=== PATIENT | male | born 1950 | race Caucasian/White ===

== ENCOUNTER 2016-09-16 12:54 | Outpatient (CLI) | payer MEDICARE, BC ==
[~2016-09-16] VITALS: Ht 182.9 cm; Wt 132.0 kg
[~2016-09-16 12:54] MED LIST: AMLO10TA82 PO; ASP81TEC PO; BNZ40T PO; CLPD75T PO; EZET10TA5 PO; MULT-851 PO; MULT-927 PO; NIAC1CAP PO; OMG1KC PO; PNT40TEC PO; VITAMIN C 1000MG PO
[2016-09-16] MEDS ORDERED: NIAC500T9 PO (13:15)
[2016-09-16 13:16] VITALS: BP 144/86
== END 2016-09-16 14:24 | disposition home or self-care (01) ==
LOC: PREOP 12:54
PROVIDERS: ATTEND Podiatrist Foot Surgery
DX: Z01.818 Encounter for other preprocedural examination (principal); Z11.2 Encounter for screening for other bacterial diseases; M66.879 Spontaneous rupture of other tendons, unspecified ankle and foot
CPT/HCPCS: 87081

== ENCOUNTER 2016-09-19 07:42 | Day surgery (SDC) | payer MEDICARE, BC ==
--- NOTE | 2016-09-17 09:31 | HISTORY AND PHYSICAL ---
DATE OF ADMISSION: 09/19/2015 To have outpatient surgery by Dr. Devine. CHIEF COMPLAINT: Left foot surgery, pain on the second toe of the left foot. Metatarsal area hurts me and wants corrected. ALLERGIC TO MEDICATIONS: Denies. MEDICATIONS NOW ON: 1. Zetia 10 mg 2. Norvasc 10 mg 3. Benazepril 40 mg 4. Plavix 75 mg 5. Pantoprazole 40 mg 6. enteric coated aspirin 81 mg 7. vitamins with minerals 8. [place]-3 fish oil 9. vitamin C 1000 mg daily 10. niacin 500 mg FAMILY HISTORY: Heart disease with sister and brothers. Denies asthma, TB, diabetes, lung disease, cancer. REVIEW OF SYSTEMS: HEAD: Denies headache, dizziness, fainting. EYES, EARS, NOSE, THROAT: Denies diplopia. Tinnitus, admits to affecting his ears and hearing. Denies sore throat. RESPIRATORY: Has sleep apnea, has a CPAP. Denies asthma, TB, coughing, congestion, wheezing. No smoking now. HEART: Heart stent 10/2011 Dr. Nuñez at the hospital. Denies heart problems, chest pain. 1-1/2 months ago, had a stress test by Dr. Nuñez, which was negative. GASTROINTESTINAL: Appetite good. Denies blood in stools, diarrhea, constipation, ulcer, vomiting. GENITOURINARY: Denies blood, pain, frequency. PHYSICAL EXAMINATION: The patient is a white male, well-nourished, well-developed, in no acute respiratory distress at rest. VITAL SIGNS: Pulse 76, blood pressure 130/90, weight 287. EARS: Not inflamed. EYES: No conjunctivitis or icterus. Wears glasses. THROAT: Not inflamed. NECK: Thyroid not enlarged. No abnormal cervical lymphadenopathy noted. HEART: Regular rate and rhythm. LUNGS: Clear to auscultation. ABDOMEN: Soft. Liver and spleen nonpalpable. Good bowel sounds. EXTREMITIES: No pretibial edema. Good dorsalis pedis pulses. PLAN: The patient okay to have surgery. We will be on standby if has any problems. Job ID: [id number] Dictated Date: 09/16/2016 15:11:47 [employer] Supervisor Date: 09/17/2016 09:26:10/vadim
[~2016-09-19] VITALS: Ht 182.9 cm; Wt 132.0 kg
[~2016-09-19 07:42] MED LIST changes: +NIAC500T9 PO
[2016-09-19] MEDS ORDERED: NORMAL SALINE (BAXTER MINI) 50 ML IV ONE (07:59)
[2016-09-19] MEDS ORDERED: ceFAZolin 1,000 MG (ANCEF) VIAL ONE (07:59)
[2016-09-19] MEDS ORDERED: MEPIVACAINE (CARBOCAINE) 2% 50 ML VIAL ONE (08:08)
[2016-09-19] MEDS ORDERED: LIDOCAINE 1% INJ 20 ML (XYLOCAINE) VIAL ONE (08:08)
[2016-09-19] MEDS ORDERED: LACTATED RINGERS 1,000 ML IV PRN (08:14)
[2016-09-19] MEDS ORDERED: CATHETER FLUSH 10 ML SYR IV PRN (08:15)
[2016-09-19] MEDS ORDERED: ceFAZolin 1 GM/NS 50 ML IVPB IV ONE ×2 (08:15)
[2016-09-19] MEDS ORDERED: FAMOTIDINE 20MG/2ML IV (PEPCID) IV ONE (08:15)
[2016-09-19 08:18] VITALS: BP 153/101
[2016-09-19] MEDS ORDERED: MIDAZOLAM 2 MG/2 ML (VERSED) VIAL ONE (09:12)
[2016-09-19] MEDS ORDERED: fentaNYL INJECTION 100 MCG/2 ML AMP ONE ×2 (09:12→09:49)
[2016-09-19] MEDS ORDERED: LACTATED RINGERS 1,000 ML IV ONE (09:17)
[2016-09-19] MEDS ORDERED: ONDANSETRON 4 MG/2 ML (SDV) Z0FRAN ONE ×2 (09:17→11:09)
[2016-09-19] MEDS ORDERED: LIDOCAINE PF 2% 10 ML (XYLOCAINE) AMP ONE (09:17)
[2016-09-19] MEDS ORDERED: DEXAMETHASONE PF 10 MG/ML (DECADRON) VIAL ONE ×2 (09:17→10:14)
[2016-09-19] MEDS ORDERED: proPOfol 200 MG/20 ML (DIPRIVAN) VIAL IV ONE (09:17)
[2016-09-19] MEDS ORDERED: SEVOFLURANE (ULTANE) 15 ML INHAL SOLN ONE (10:01)
--- NOTE | 2016-09-19 10:42 | Progress Note-Pre Operative ---
Pre-Operative Progress Note H&P Reviewed The H&P was reviewed, patient examined and no changes noted. Date H&P Reviewed: Sep 19, 2016 Time H&P Reviewed: 07:30 Pre-Operative Diagnosis: ruptured plantar plate 2nd mpj lfet foot. SYED YAP DPM Sep 19, 2016 10:42 am
[2016-09-19] MEDS ORDERED: PROMETHAZINE INJ 25 MG/ML (PHENERGAN) AMP IV PRN (10:45)
[2016-09-19] MEDS ORDERED: morphine INJ 10 MG/ML 1ML (SYR OR VIAL) IV PRN (10:45)
[2016-09-19] MEDS ORDERED: ONDANSETRON 4 MG/2 ML (SDV) Z0FRAN IV PRN (10:45)
[2016-09-19] MEDS ORDERED: LACTATED RINGERS 1,000 ML IV SCH (10:47)
--- NOTE | 2016-09-19 10:47 | Progress Note-Post Operative ---
Post-Operative Progess Note Pre-Operative Diagnosis ruptured plantar plate 2nd mpj lfet foot. Post-Operative Diagnosis same Post-Op Procedure Note Date of Procedure: Sep 19, 2016 Name of Procedure: repair of ruptured plantar plate excision of neuroma second interspace left foot. Procedure Note/Findings thickened nerve second interspace left foot and rupture of plantar plate 2nd left foot. Anesthesia Type gereral with infiltration. Specimen(s) collected neuroma second interspace left foot. SYED YAP DPM Sep 19, 2016 10:46 am
[2016-09-19] MEDS ORDERED: HYDROcodone/APAP 5 MG/325 MG (LORTAB) TAB PO PRN (11:00)
[2016-09-19 11:30] VITALS: BP 131/90
[2016-09-19] MEDS ORDERED: HYDR-3730 PO (11:54)
[2016-09-19 12:00] VITALS: BP 128/84
[2016-09-19 12:30] VITALS: BP 124/81
--- NOTE | 2016-09-19 13:27 | OPERATIVE REPORT ---
PROCEDURE PHYSICIAN: SYED YAP DATE OF PROCEDURE: 09/19/2016 PREOPERATIVE DIAGNOSIS: 1. Ruptured flexor plate, second MPJ, left foot. 2. Possible neuroma second interspace, left foot. POSTOPERATIVE DIAGNOSIS: 1. Ruptured flexor plate, second MPJ, left foot. 2. Possible neuroma second interspace, left foot. NAME OF OPERATION: 1. Repair of ruptured plantar plate second MPJ, left foot . 2. Excision of neuroma second interspace, left foot. DESCRIPTION OF OPERATION: With the patient the supine position, having been effected by general anesthetic, sterile prep and drape were performed. Timo bandage was applied above the level of the ankle. A 4 cm linear incision was made in the plantar aspect of the second MPJ. This incision was deepened with sharp and blunt dissection. Vital structures identified and retracted. Dissection was carried deep to the second interspace and the interdigital nerve was identified freed from surrounding tissues, noted to be somewhat thickened at the second interspace and resected in toto to normal nervous tissue proximally and distally. The soft tissue was then dissected free of the plantar plate and there was noted a tear with hemorrhage in the plantar aspect of the plantar plate of the second MPJ. This was reapproximated with a 3-0 Vicryl and closed primarily with continuous lock suture of 3-0 Vicryl. Deep closure was accomplished by continuous suture of 3-0 Vicryl and the skin was reapproximated with continuous lock suture of 4-0 Prolene. Tourniquet was released. Blood flow return to the digits was within normal limits. Decadron was introduced into the operative site to control postoperative pain and swelling and the area was also infiltrated with a total of 10 mL of 50-50 mixture of 0.5% Marcaine plain and 1% Carbocaine plain. The patient tolerated the procedure well with minimal blood loss following application of sterile corrective compressive dressing. He is to be seen in the office in 2 weeks for appropriate follow-up care. Was given an Rx for Lortab 7.5 number 28 one q.4-6 hours p.r.n. foot pain. Job ID: [id number] Dictated Date: 09/19/2016 11:14:44 [employer] Driving [employer] Operator Date: 09/19/2016 13:19:10 / salima
[2016-09-19 13:55] VITALS: BP 124/81
== END 2016-09-19 13:55 | disposition home or self-care (01) ==
LOC: SDC 07:42
PROVIDERS: ATTEND Podiatrist Foot Surgery
DX: M66.879 Spontaneous rupture of other tendons, unspecified ankle and foot (principal); G57.62 Lesion of plantar nerve, left lower limb

== ENCOUNTER 2017-12-29 05:39 | Outpatient (CLI) | payer MEDICARE, BC ==
[~2017-12-29] VITALS: Ht 182.9 cm; Wt 117.6 kg
[~2017-12-29 05:39] MED LIST changes: +HYDR-3730 PO
[2017-12-29] MEDS ORDERED: OMG1KC PO (11:45)
[2017-12-29] MEDS ORDERED: BNZ40T PO (11:45)
[2017-12-29] MEDS ORDERED: AMLO10TA2 PO (11:45)
[2017-12-29] MEDS ORDERED: VITA400C21 PO (11:45)
[2017-12-29] MEDS ORDERED: PANT40TA3 PO (11:45)
[2017-12-29] MEDS ORDERED: PRIM50TA PO (11:45)
[2017-12-29] MEDS ORDERED: ASPI-999 PO (11:45)
[2017-12-29] MEDS ORDERED: CLOP75TA28 PO (11:45)
[2017-12-29] MEDS ORDERED: MULT1CAP14 PO (11:45)
[2017-12-29] MEDS ORDERED: ASCO-262 PO (11:45)
[2017-12-29 11:47] VITALS: BP 132/80
== END 2017-12-29 12:12 | disposition home or self-care (01) ==
LOC: PREOP 05:39
PROVIDERS: ATTEND Orthopaedic Surgery
DX: Z01.818 Encounter for other preprocedural examination (principal); M75.101 Unspecified rotator cuff tear or rupture of right shoulder, not specified as traumatic
CPT/HCPCS: 87081

== ENCOUNTER 2018-01-06 07:22 | Day surgery (SDC) | payer MEDICARE, BC ==
--- NOTE | 2017-12-28 17:27 | HISTORY AND PHYSICAL ---
DATE OF SERVICE: ADMISSION HISTORY AND PHYSICAL DATE OF ADMISSION: 01/06/2018 This will be for outpatient surgery. He is here for right shoulder arthroscopy and rotator cuff repair. HISTORY OF PRESENT ILLNESS: The patient is a 67-year-old gentleman with complaints of right shoulder pain, which has been progressive in nature. This has been ongoing for months. He has undergone treatment with injections and home exercise program without relief. An MRI revealed a full-thickness supraspinatus tear and due to weakness and functional impairment and failure to improve with conservative measures, the patient elected to proceed with surgical intervention. REVIEW OF SYSTEMS: No chest pain. No shortness of breath. No dysuria. PAST MEDICAL HISTORY: Hypertension, hyperlipidemia. PAST SURGICAL HISTORY: Left foot. FAMILY HISTORY: Noncontributory. PRIMARY CARE PROVIDER: Eddie Ramsey DO. MEDICATIONS: Amlodipine, benazepril, clopidogrel, pantoprazole, aspirin, omega 3. ALLERGIES: No known drug allergies. SOCIAL HISTORY: The patient drinks alcohol socially. Denies tobacco use. PHYSICAL EXAMINATION: GENERAL: The patient is a well-developed, well-nourished, in no acute distress. HEENT: Normocephalic, atraumatic. Pupils are equal, round, and reactive to light. Oropharynx is clear. NECK: Supple, no lymphadenopathy. LUNGS: Clear to auscultation bilaterally. HEART: Regular rate and rhythm. ABDOMEN: Soft, nontender, nondistended. EXTREMITIES: Exam of the right shoulder demonstrates positive Neer's and positive Hawkin sign. Slight weakness with abduction and external rotation with pain elicited with Lorain's maneuver. He has pain in the right shoulder with active forward elevation beyond 90 degrees. Negative Spurling's maneuver. IMPRESSION: Right shoulder rotator cuff tear. PLAN: Right shoulder arthroscopy with open rotator cuff repair. The risks, benefits, options, ramifications and recovery were discussed at length with the patient. He understands and wishes to proceed. Job ID: [id number] DocumentID: [id number] Dictated Date: 12/28/2017 16:15:19 Systems Project Manager Date: 12/28/2017 17:26:48 Dictated By: MARK HIDALGO MD
[~2018-01-06] VITALS: Ht 182.9 cm; Wt 117.6 kg
[~2018-01-06 07:22] MED LIST changes: +AMLO10TA2 PO; +ASCO-262 PO; +ASPI-999 PO; +CLOP75TA28 PO; +LACTATED RINGERS 1,000 ML IV PRN; +MULT1CAP14 PO; +PANT40TA3 PO; +PRIM50TA PO; +VITA400C21 PO
--- OUTSIDE RECORDS SUMMARY | 2018-01-06 07:26 | XMS REPORT | Continuity of Care Document ---
Author Author [facility] Organization [facility] Address Unknown Phone Unavailable Allergies Active Description Code Type Severity Reaction Onset Reported/Identified Relationship to Patient Clinical Status Yes NO KNOWN DRUG ALLERGIES UNKNOWN NO KNOWN DRUG ALLERG Yes No Known Drug Allergies [id number] Drug Allergy Unknown N/A 12/29/2017 Medications Medication Packaging Start Date Stop Date Route Dosage Sig LACTATED RINGERS 1000CC IV BAG INJ ml 07/06/2017 07/13/2017 CONTINUOUSEVERY 0 Hour Problems Date Dx Coded Attending Type Code Diagnosis Diagnosed By 08/06/2016 CACHORRO SUTTON L TOBACCO SCRAP SIFTER Ot E78.4 OTHER HYPERLIPIDEMIA 08/06/2016 HERMAN, CACHORRO L TOBACCO SCRAP SIFTER Ot G47.33 OBSTRUCTIVE SLEEP APNEA (ADULT) (PEDIATR 08/06/2016 BAIMA, CACHORRO L TOBACCO SCRAP SIFTER Ot I10 ESSENTIAL (PRIMARY) HYPERTENSION 08/06/2016 BAIMA, CACHORRO L TOBACCO SCRAP SIFTER Ot I25.10 ATHSCL HEART DISEASE OF [place] CORONARY 08/06/2016 BAIMA, CACHORRO L TOBACCO SCRAP SIFTER Ot I65.23 OCCLUSION AND STENOSIS OF BILATERAL [place] 09/02/2016 BAIMA, CACHORRO L TOBACCO SCRAP SIFTER Ot E78.4 OTHER HYPERLIPIDEMIA 09/02/2016 BAIMA, CACHORRO L TOBACCO SCRAP SIFTER Ot G47.33 OBSTRUCTIVE SLEEP APNEA (ADULT) (PEDIATR 09/02/2016 BAIMA, CACHORRO L TOBACCO SCRAP SIFTER Ot I10 ESSENTIAL (PRIMARY) HYPERTENSION 09/02/2016 BAIMA, CACHORRO L TOBACCO SCRAP SIFTER Ot I25.10 ATHSCL HEART DISEASE OF [place] CORONARY 09/02/2016 BAIMA, CACHORRO L TOBACCO SCRAP SIFTER Ot I65.23 OCCLUSION AND STENOSIS OF BILATERAL [place] 09/03/2016 BAIMA, CACHORRO L TOBACCO SCRAP SIFTER Ot E78.4 OTHER HYPERLIPIDEMIA 09/03/2016 BAIMA, CACHORRO L TOBACCO SCRAP SIFTER Ot G47.33 OBSTRUCTIVE SLEEP APNEA (ADULT) (PEDIATR 09/03/2016 BAIMA, CACHORRO L TOBACCO SCRAP SIFTER Ot I10 ESSENTIAL (PRIMARY) HYPERTENSION 09/03/2016 BAIMA, CACHORRO L TOBACCO SCRAP SIFTER Ot I25.10 ATHSCL HEART DISEASE OF [place] CORONARY 09/03/2016 CACHORRO SUTTON TOBACCO SCRAP SIFTER Ot I65.23 OCCLUSION AND STENOSIS OF BILATERAL [place] 09/17/2016 YAP DPM, SYED P Ot M66.879 SPONTANEOUS RUPTURE OF OTHER TENDONS, UN 09/17/2016 YAP DPM, SYED P Ot Z01.818 ENCOUNTER FOR OTHER PREPROCEDURAL EXAMIN 09/17/2016 YAP DPM, SYED P Ot Z11.2 ENCOUNTER FOR SCREENING FOR OTHER BACTER 09/17/2016 YAP DPM, SYED P Ot M66.879 SPONTANEOUS RUPTURE OF OTHER TENDONS, UN 09/17/2016 YAP DPM, SYED P Ot Z01.818 ENCOUNTER FOR OTHER PREPROCEDURAL EXAMIN 09/17/2016 YAP DPM, SYED P Ot Z11.2 ENCOUNTER FOR SCREENING FOR OTHER BACTER 09/19/2016 YAP DPM, SYED P Ot G57.62 LESION OF PLANTAR NERVE, LEFT LOWER LIMB 09/19/2016 YAP DPM, SYED P Ot M66.879 SPONTANEOUS RUPTURE OF OTHER TENDONS, UN 09/23/2016 YAP DPM, SYED P Ot G57.62 LESION OF PLANTAR NERVE, LEFT LOWER LIMB 09/23/2016 YAP DPM, SYED P Ot M66.879 SPONTANEOUS RUPTURE OF OTHER TENDONS, UN 09/25/2016 YAP DPM, SYED P Ot G57.62 LESION OF PLANTAR NERVE, LEFT LOWER LIMB 09/25/2016 YAP DPM, SYED P Ot M66.879 SPONTANEOUS RUPTURE OF OTHER TENDONS, UN 05/19/2017 Eddie Ramsey W 573.9 UNSPECIFIED DISORDER OF LIVER 05/19/2017 Eddie Ramsey 573.9 UNSPECIFIED DISORDER OF LIVER 07/06/2017 Cristina Chopra W 562.12 DIVERTICULOSIS OF COLON WITH HEMORRHAGE 07/06/2017 Cristina Chopra K57.30 DVRTCLOS OF LG INT W/O PERFORATION OR ABSCESS W/O BLEEDING 07/06/2017 Cristina Chopra V76.51 SCREENING FOR MALIGNANT NEOPLASMS OF COLON 07/06/2017 Critsina Chopra A Z12.11 ENCOUNTER FOR SCREENING FOR MALIGNANT NEOPLASM OF COLON 12/07/2017 Eddie Ramsey W 401.9 UNSPECIFIED ESSENTIAL HYPERTENSION 12/07/2017 Eddie Ramsey W I10 ESSENTIAL (PRIMARY) HYPERTENSION 12/29/2017 GWEN VILLANUEVA, MARK Alston Ot M75.101 UNSP ROTATR-CUFF TEAR/RUPTR OF RIGHT JOE 12/29/2017 GWEN VILLANUEVA, MARK Alston Ot Z01.818 ENCOUNTER FOR OTHER PREPROCEDURAL EXAMIN Procedures There is no data. Results Test Result Range Methicillin resistant Staphylococcus aureus (MRSA) screening culture - 13:10 Methicillin resistant Staphylococcus aureus (MRSA) screening culture NEG NRG Thyroid Stimulating Hormone - 01/13/17 16:04 TSH 0.85 mIU/mL 0.32-5.00 T4 - 01/13/17 16:04 T4 7.1 ug/dL 4.5-12.5 Lipid Panel - 02/10/17 09:47 C/HDL 4.7 3.7-6.7 Cholesterol 204 mg/dL 100-240 HDL 43 mg/dL 30-85 LDL-Calculated 139 mg/dL 0-100 Trig 112 mg/dL 35-160 VLDL 22 mg/dL 0-42 Comprehensive Metabolic Panel - 02/10/17 09:47 Albumin 4.5 g/dL 3.6-5.1 ALP 64 U/L 35-130 ALT 149 U/L 6-45 Anion Gap 14 6-14 AST 90 U/L 2-40 BUN 15 mg/dL 5-25 Calcium 9.8 mg/dL 8.3-10.4 Chloride 109 mmol/L 95-114 CO2 23 mEq/L 22-33 Creat 1.18 mg/dL 0.50-1.50 eGFR 62 mL/min/1.73m2 >59 Globulin 3.0 g/dL 2.3-3.5 Glucose 122 mg/dL 70-110 Osmo 293 280-295 Potassium 4.5 mmol/L 3.5-5.3 Sodium 141 mmol/L 134-148 TBil 0.8 mg/dL 0.2-1.2 TP 7.5 g/dL 6.0-8.3 ALT (SGPT) - 03/25/17 10:13 ALT 144 U/L 6-45 AST (SGOT) - 03/25/17 10:13 AST 96 U/L 2-40 AST (SGOT) - 04/25/17 08:41 AST 92 U/L 2-40 Blood Urea Nitrogen - 04/29/17 12:24 BUN 16 mg/dL 5-25 Creatinine - 04/29/17 12:24 Creat 1.20 mg/dL 0.50-1.50 eGFR 61 mL/min/1.73m2 >59 Hepatic Panel - 05/19/17 09:23 Albumin 4.2 g/dL 3.6-5.1 ALP 58 U/L 35-130 ALT 170 U/L 6-45 AST 113 U/L 2-40 DBil 0.3 mg/dL 0.0-0.2 GGT 45 U/L 5-40 Globulin 3.2 g/dL 2.3-3.5 TBil 0.8 mg/dL 0.2-1.2 TP 7.4 g/dL 6.0-8.3 Hepatitis Panel, Acute - 05/19/17 09:23 Hep A Ab, IgM NEGATIVE NEGATIVE HBsAg Screen NEGATIVE NEGATIVE Hep B Core Ab, IgM NEGATIVE NEGATIVE Hep C Virus Ab <0.1 S/CO RATIO 0.0-0.9 Hepatitis Panel (4) - 05/19/17 09:23 HBsAg Screen Negative Negative Hep A Ab, IgM Negative Negative Hep B Core Ab, IgM Negative Negative Hep C Virus Ab <0.1 s/co ratio 0.0-0.9 Hepatic Panel - 06/27/17 09:12 Albumin 4.2 g/dL 3.6-5.1 ALP 63 U/L 35-130 ALT 139 U/L 6-45 AST 78 U/L 2-40 DBil 0.4 mg/dL 0.0-0.2 GGT 34 U/L 5-40 Globulin 2.9 g/dL 2.3-3.5 TBil 0.9 mg/dL 0.2-1.2 TP 7.1 g/dL 6.0-8.3 Comprehensive Metabolic Panel - 07/01/17 12:21 Albumin 4.3 g/dL 3.6-5.1 ALP 67 U/L 35-130 ALT 135 U/L 6-45 Anion Gap 15 6-14 AST 80 U/L 2-40 BUN 13 mg/dL 5-25 Calcium 9.5 mg/dL 8.3-10.4 Chloride 109 mmol/L 95-114 CO2 20 mEq/L 22-33 Creat 1.18 mg/dL 0.50-1.50 eGFR 62 mL/min/1.73m2 >59 Globulin 3.1 g/dL 2.3-3.5 Glucose 109 mg/dL 70-110 Osmo 288 280-295 Potassium 4.5 mmol/L 3.5-5.3 Sodium 139 mmol/L 134-148 TBil 0.6 mg/dL 0.2-1.2 TP 7.4 g/dL 6.0-8.3 Influenza - 08/04/17 11:25 Influenza NEGATIVE FOR A and B 0.00-0.00 Hepatic Panel - 10/01/17 08:54 Albumin 4.4 g/dL 3.6-5.1 ALP 67 U/L 35-130 ALT 35 U/L 6-45 AST 26 U/L 2-40 DBil 0.2 mg/dL 0.0-0.2 GGT 23 U/L 5-40 Globulin 3.2 g/dL 2.3-3.5 TBil 0.5 mg/dL 0.2-1.2 TP 7.6 g/dL 6.0-8.3 Lipid Panel - 12/07/17 10:05 C/HDL 6.1 3.7-6.7 Cholesterol 244 mg/dL 100-240 HDL 40 mg/dL 30-85 LDL-Calculated 165 mg/dL 0-100 Trig 195 mg/dL 35-160 VLDL 39 mg/dL 0-42 Comprehensive Metabolic Panel - 12/07/17 10:05 Albumin 4.5 g/dL 3.6-5.1 ALP 61 U/L 35-130 ALT 22 U/L 6-45 Anion Gap 16 6-14 AST 21 U/L 2-40 BUN 20 mg/dL 5-25 Calcium 10.2 mg/dL 8.3-10.4 Chloride 104 mmol/L 95-114 CO2 22 mEq/L 22-33 Creat 1.29 mg/dL 0.50-1.50 eGFR 56 mL/min/1.73m2 >59 Globulin 3.4 g/dL 2.3-3.5 Glucose 118 mg/dL 70-110 Osmo 287 280-295 Potassium 4.8 mmol/L 3.5-5.3 Sodium 137 mmol/L 134-148 TBil 0.5 mg/dL 0.2-1.2 TP 7.9 g/dL 6.0-8.3 Methicillin resistant Staphylococcus aureus (MRSA) screening culture - 11:45 Methicillin resistant Staphylococcus aureus (MRSA) screening culture NEG NRG Encounters ACCT No. Visit Date/Time Discharge Status Pt. Type Provider Facility Loc./Unit Complaint [id number] 12/29/2017 05:39:00 12/29/2017 12:12:00 DIS Outpatient MARK HIDALGO MD [facility] PREOP RIGHT SHOULDER ROTATOR CUFF REPAIR [id number] 09/19/2016 07:42:00 09/19/2016 13:55:00 DIS Outpatient SYED YAP DPM [facility] RUPTURED PLANTAR PLATE 2ND MPJ LEFT FOOT [id number] 09/16/2016 12:54:00 09/16/2016 14:24:00 DIS Outpatient SYED YAP DPM [facility] PREOP RUPTURED PLANTAR PLATE 2ND MPJ LEFT [id number] 08/05/2016 07:59:00 08/05/2016 23:59:59 CLS Outpatient CACHORRO SUTTON [facility] CARD CAD,SLEEP APNEA [id number] 12/06/2013 11:16:00 12/06/2013 23:59:59 CLS Outpatient [id number] 11/29/2013 11:00:00 11/29/2013 17:50:00 DIS Outpatient [id number] 01/06/2018 08:00:00 PEN Preadmit MARK HIDALGO MD [facility] RIGHT SHOULDER ROTATOR CUFF TEAR [id number] 12/07/2017 09:50:00 12/07/2017 23:59:00 DIS Outpatient Eddie Ramsey [id number] 11/08/2017 00:00:00 11/08/2017 23:59:00 DIS Outpatient MARK HIDALGO [id number] 11/04/2017 00:00:00 11/04/2017 23:59:00 DIS Outpatient MARK HIDALGO [id number] 10/01/2017 08:51:00 10/01/2017 23:59:00 DIS Outpatient Jluis Thomas [id number] 08/04/2017 10:17:00 08/04/2017 23:59:00 DIS Outpatient Eddie Ramsey [id number] 07/06/2017 00:00:00 07/06/2017 23:59:59 CLS Outpatient Cristina Chopra [id number] 07/01/2017 12:01:00 07/01/2017 23:59:00 DIS Outpatient Jose Choprarimma [id number] 06/27/2017 09:05:00 06/27/2017 23:59:00 DIS Outpatient Jluis Thomas [id number] 05/19/2017 09:16:00 05/19/2017 23:59:00 DIS Outpatient Eddie Ramsey [id number] 04/30/2017 09:37:00 04/30/2017 23:59:00 DIS Outpatient Eddie Ramsey [id number] 04/29/2017 12:17:00 04/29/2017 23:59:00 DIS Outpatient Eddie Ramsey [id number] 04/25/2017 08:30:00 04/25/2017 23:59:00 DIS Outpatient Eddie Ramsey [id number] 03/25/2017 10:09:00 03/25/2017 23:59:00 DIS Outpatient Eddie Ramsey [id number] 02/10/2017 09:44:00 02/10/2017 23:59:00 DIS Outpatient Eddie Ramsey [id number] 01/13/2017 16:00:00 01/13/2017 23:59:00 DIS Outpatient THEE DHILLON [id number] 07/01/2017 12:45:11 Document Registration [id number] 05/20/2017 12:18:00 Document Registration
[2018-01-06 07:30] VITALS: BP 133/69
[2018-01-06] MEDS ORDERED: ceFAZolin INJECTION 1,000 MG in NS (IVPB) 100 ML IV ONE (07:30)
--- NOTE | 2018-01-06 07:36 | Progress Note-Pre Operative ---
Pre-Operative Progress Note H&P Reviewed The H&P was reviewed, patient examined and no changes noted. Date Seen by Provider: January 06, 2018 Time Seen by Provider: 07:36 Date H&P Reviewed: January 06, 2018 Time H&P Reviewed: 07:36 Pre-Operative Diagnosis: right rotator cuff tear MARK HIDALGO MD January 06, 2018 07:36
--- NOTE | 2018-01-06 07:37 | Progress Note-Post Operative ---
Post-Operative Progess Note Surgeon (s)/Egg Worker (s) Surgeon MARK HIDALGO MD Egg Worker: Ramon Peterson Pre-Operative Diagnosis right rotator cuff tear Post-Operative Diagnosis right rotator cuff tear Procedure & Operative Findings Date of Procedure 01/06/18 Procedure Performed/Findings right shoulder arthroscopic acromioplasty and open rotator cuff repair Anesthesia Type GETA plus interscalene block Estimated Blood Loss Estimated blood loss (mL): 50 ml Specimens/Packing Specimens Removed none Packing: none MARK HIDALGO MD January 06, 2018 07:37
[2018-01-06] MEDS ORDERED: oxyCODONE/APAP 5/325MG (PERCOCET 5) TABLET PO PRN (07:45)
[2018-01-06] MEDS ORDERED: FAMOTIDINE 20MG/2ML IV (PEPCID) ONE (08:47)
[2018-01-06] MEDS ORDERED: ONDANSETRON 4 MG/2 ML (SDV) Z0FRAN ONE ×2 (08:47→10:10)
[2018-01-06] MEDS ORDERED: ROPIVACAINE 5MG/ML 30ML VIAL ONE (08:50)
[2018-01-06] MEDS ORDERED: MIDAZOLAM 2 MG/2 ML (VERSED) VIAL ONE (08:50)
[2018-01-06] MEDS ORDERED: fentaNYL INJECTION 100 MCG/2 ML AMP ONE (08:57)
[2018-01-06] MEDS ORDERED: BUPIVACAINE 0.25% 30 ML (SENSORCAINE) VIAL ONE (09:19)
[2018-01-06] MEDS ORDERED: morphine PF (DURAMORPH) 10 MG/10 ML AMP ONE (09:19)
[2018-01-06] MEDS ORDERED: LIDOCAINE PF 2% 5 ML (XYLOCAINE) VIAL ONE (09:21)
[2018-01-06] MEDS ORDERED: proPOfol 200 MG/20 ML (DIPRIVAN) VIAL IV ONE (09:21)
[2018-01-06] MEDS ORDERED: PROPOFOL INJECTION 50 ML IV ONE ×2 (10:10)
[2018-01-06] MEDS ORDERED: DEXAMETHASONE 10 MG/ML (DECADRON) 1 ML VIAL ONE (10:10)
[2018-01-06] MEDS ORDERED: ROCURONIUM 10 MG/ML 5 ML SYRINGE IV ONE (10:27)
[2018-01-06] MEDS ORDERED: GLYCOPYRROLATE 0.2 MG/ML (ROBINUL) 2 ML VIAL ONE (10:35)
[2018-01-06] MEDS ORDERED: NEOSTIGMINE 1 MG/ML 5 ML SYRINGE ONE (10:35)
--- NOTE | 2018-01-06 10:36 | Anesthesia-Peripheral Nerve Bl ---
Procedure Start/Stop Time Date of Procedure: January 06, 2018 Start Time: 09:10 Referring Physician: Alfa Preprocedural Diagnosis: Shoulder Surgery Stop Time: 09:20 Peripheral Nerve Block Peripheral Nerve Blockade Risk/Benefits/Alternatives discussed, including IV injection leading to complications or seizures, nerve irritation or damage, pneumothorax, total spinal anesthesia, injection, and/or bleeding. Approach: Interscalene Side Confirmed: RIGHT Indication: Req Pain Mgmt by Surgeon Specifically requested for management of pain by: Alfa Physician requested: yes Patient Condition Vital Signs Vital Signs Date Time Temp Pulse Resp B/P (MAP) Pulse Ox O2 Delivery O2 Flow Rate FiO2 01/06/18 07:30 98.1 69 16 133/69 (90) 95 Room Air Patient Condition: Sedate/contact maintained Indication Post Op pain control Procedure Prepartation: Alcohol, Chlorhexidine Position: Supine [place]: Short-bevel Needle (s) Size: 22g 2" [place] Barrel Ribs: Stimiplex Technique: Injection through needle, Infiltration, Nerve Stimulation, Ultrasound Motor response or parethesia o: Bicep mA: 0.44 Depth (cm): 1.5 Sedation Given: Midazolam (2 mg) Dose (mg/mcg): 2 Injectate: ropivacaine Concentration %: 0.5 Volume (ml): 20 Narrative Injection was made incrementally with constant monitoring. Aspiration every (mls): 5 Blood Aspirated: No Pain on injection noted: No Normal Resistance on injection: Yes Events Events: None:easy well tolerated Sucess: Complete Patient Conditon Post Peripheral Nerve Block Post Peripheral Nerve Block Vital Signs: Blood Pressure: Systolic Diastolic Heart Rate Blood Pressure Systolic: 133 Blood Pressure Diastolic: 69 Pulse Rate (adult): 69 CHICA JACKSON CRNA January 06, 2018 10:36
[2018-01-06] MEDS ORDERED: ONDANSETRON 4 MG/2 ML (SDV) Z0FRAN IVP PRN (11:00)
[2018-01-06] MEDS ORDERED: PROMETHAZINE INJ 25 MG/ML (PHENERGAN) AMP IVP PRN (11:00)
[2018-01-06] MEDS ORDERED: morphine INJ 10 MG/ML 1ML (SYR OR VIAL) IVP PRN (11:00)
[2018-01-06] MEDS ORDERED: fentaNYL INJECTION 100 MCG/2 ML AMP IVP PRN (11:00)
[2018-01-06 11:45] VITALS: BP 115/76
[2018-01-06 11:46] VITALS: BP 115/76
[2018-01-06 12:15] VITALS: BP 130/81
[2018-01-06] MEDS ORDERED: OXYC-471 PO (12:31)
[2018-01-06 12:45] VITALS: BP 127/84
--- NOTE | 2018-01-06 12:45 | Anesthesia-General Post-Op ---
General Patient Condition Mental Status/LOC: Same as Preop Cardiovascular: Satisfactory Nausea/Vomiting: Absent Respiratory: Satisfactory Pain: Controlled Complications: Absent Post Op Complications Complications None Follow Up Care/Instructions Patient Instructions None needed. Anesthesia/Patient Condition Patient Condition Patient is doing well, no complaints, stable vital signs, no apparent adverse anesthesia problems. No complications reported per nursing. CHICA JACKSON CRNA January 06, 2018 12:45
--- NOTE | 2018-01-06 20:30 | OPERATIVE REPORT ---
DATE OF SERVICE: 01/06/2018 PREOPERATIVE DIAGNOSIS: Right rotator cuff tear. POSTOPERATIVE DIAGNOSIS: Right rotator cuff tear. PROCEDURE: 1. Right shoulder arthroscopic acromioplasty. 2. Right shoulder open rotator cuff repair. SURGEON: Ronald Hidalgo MD [employer] INSTRUCTOR: Ramon Peterson, who assisted throughout the procedure and closed the incisions. ANESTHESIA: General endotracheal plus interscalene nerve block by Paradise Lang CRNA ESTIMATED BLOOD LOSS: 50 mL. DRAINS: None. COMPLICATIONS: None. POSTOPERATIVE PLAN: Sling wear and passive range of motion for 4 weeks. The patient was transported to the recovery room awake and in stable condition. STATEMENT OF MEDICAL NECESSITY: The patient is a 67-year-old right hand dominant gentleman with complaints of right shoulder pain and weakness. He had undergone treatment with injections, anti-inflammatories and rest without relief and due to functional impairment and failure to improve with conservative measures, the patient elected to proceed with surgical intervention. An MRI confirmed a full thickness supraspinatus tear. Examination under anesthesia revealed passive range of motion degrees, external rotation of 90 degrees and internal rotation of 75 degrees. Arthroscopic findings demonstrated a 2 x 1 cm full thickness supraspinatus tear. The rotator cuff otherwise was intact. The humeral head demonstrated grade 2 chondral wear superiorly and a 10 x 10 area with no unstable chondral flaps. The glenoid demonstrated no significant chondral abnormalities. The labrum was intact throughout. The biceps anchor was intact. DESCRIPTION OF PROCEDURE: After risks and benefits of the procedure were discussed and questions were answered, an informed consent was signed and placed on chart. The operative site was confirmed in the preoperative holding area initialed by the surgeon. The patient transported to the operating room after adequate levels of regional and general endotracheal anesthetic were obtained. A timeout was called confirming the operative site. Examination under anesthesia was performed. The above findings noted. The right shoulder and upper extremity were prepped and draped in the usual sterile fashion. The shoulder joint was injected with 20 mL of fluid as was the subacromial space. Standard posterior portal was placed and diagnostic arthroscopy was carried out with the above findings noted. The scope was then redirected into the subacromial space and a lateral portal was created. A bursectomy was performed and the acromion was planed to a flat type 1 acromion. The lateral portal was then extended. The deltoid was split in line with its fibers. The rotator cuff tear was mobilized and a single corkscrew anchor was placed just off the articular surface in a modified Cosmo -- Poncho repair was performed. An anatomic repair was obtained with no undue tension noted at the repair site. The wound was copiously irrigated. The deltoid was repaired in side to side fashion using #2 FiberWire in [id number] interrupted fashion. The wound was further irrigated. A 2-0 Vicryl was used to reapproximate the subcutaneous tissue and the skin was closed with 4-0 nylon in running alternating horizontal mattress fashion. The port sites were closed with 4-0 nylon in simple interrupted fashion as well. A soft dressing and sling were applied. The patient was transported to the recovery room awake and in stable condition. Job ID: [id number] DocumentID: [id number] Dictated Date: 01/06/2018 10:38:36 Fans Clerk Date: 01/06/2018 20:30:27 Dictated By: RONALD HIDALGO MD
== END 2018-01-06 13:10 | disposition home or self-care (01) ==
LOC: SDC 07:22
PROVIDERS: ATTEND Orthopaedic Surgery
DX: M75.101 Unspecified rotator cuff tear or rupture of right shoulder, not specified as traumatic (principal); I10 Essential (primary) hypertension; E78.5 Hyperlipidemia, unspecified; Z79.82 Long term (current) use of aspirin; Z79.899 Other long term (current) drug therapy

== ENCOUNTER → 2018-10-15 | Outpatient (CLI) | payer MEDICARE, BC ==
[~2018-10-15] VITALS: Ht 182.9 cm; Wt 113.4 kg
[~2018-10-15] MED LIST changes: -AMLO10TA2 PO; +AMLO10TA7 PO; +BENA40TA5 PO; -LACTATED RINGERS 1,000 ML IV PRN; +OXYC-471 PO
--- NOTE | 2018-10-15 11:44 | Diagnostic Imaging Report ---
INDICATION: Left thyroid nodule. FINDINGS: Sonographic guidance was provided for Dr. Regalado for left thyroid nodule FNA. A total of three passes were made by Dr. Regalado. IMPRESSION: Sonographic guidance for Dr. Regalado for left thyroid nodule FNA. Dictated by: Dictated on workstation # [id number]
== END ==
LOC: RAD 10:21
PROVIDERS: ATTEND Otolaryngology Otolaryngology/Facial Plastic Surgery
DX: E04.1 Nontoxic single thyroid nodule (principal)
CPT/HCPCS: 76942

== ENCOUNTER → 2019-01-13 | Outpatient (CLI) | payer MEDICARE, BC ==
--- NOTE | 2019-01-13 17:42 | Diagnostic Imaging Report ---
INDICATION: Left thyroid nodule. FINDINGS: Sonographic guidance was provided for Dr. Regalado for left thyroid nodule FNA. Three passes were made into the left lobe thyroid hypoechoic nodule by Dr. Regalado. IMPRESSION: Sonographic guidance for left thyroid FNA by Dr. Regalado. Dictated by: Dictated on workstation # [id number]
== END ==
LOC: RAD 10:38
PROVIDERS: ATTEND Otolaryngology Otolaryngology/Facial Plastic Surgery
DX: E04.1 Nontoxic single thyroid nodule (principal)
CPT/HCPCS: 76942

== ENCOUNTER → 2019-02-22 | Outpatient (CLI) | payer MEDICARE, BC ==
[~2019-02-22] VITALS: Ht 182.9 cm; Wt 117.5 kg
[~2019-02-22] MED LIST changes: +REGADENOSON 0.4 MG/5 ML SYR (LEXISCAN) IV ONE
[2019-02-22] MEDS: CATHETER FLUSH 10 ML SYR IV PRN ×2 (11:34→12:56)
[2019-02-22 12:54] VITALS: BP 150/94
== END ==
LOC: CARD 10:40
PROVIDERS: ATTEND Internal Medicine Cardiovascular Disease
DX: I25.10 Atherosclerotic heart disease of native coronary artery without angina pectoris (principal); I77.9 Disorder of arteries and arterioles, unspecified; I10 Essential (primary) hypertension; E78.5 Hyperlipidemia, unspecified; R73.01 Impaired fasting glucose; G47.30 Sleep apnea, unspecified
CPT/HCPCS: 78452; 93017; 93306

== ENCOUNTER → 2019-07-01 | Outpatient (CLI) | payer MEDICARE, BC ==
[~2019-07-01] MED LIST changes: -REGADENOSON 0.4 MG/5 ML SYR (LEXISCAN) IV ONE
--- NOTE | 2019-07-01 08:47 | Diagnostic Imaging Report ---
PROCEDURE: US Thyroid. TECHNIQUE: Multiple real-time grayscale images were obtained of the thyroid in various projections. INDICATION: Left thyroid nodule. COMPARISON: 01/13/2019 FINDINGS: The right thyroid lobe measures 5.1 x 2.1 x 1.6 cm in size. There is a hypoechoic mildly irregular nodule in the superior right thyroid with a small peripheral calcification. There is posterior acoustic enhancement, and this may represent a cyst. No internal vascularity is seen. It is wider than tall, measuring 8 x 5 x 7 mm in size. This is not seen previously. The isthmus is normal in size measuring 4 mm. The left thyroid lobe measures 4.7 x 2.2 x 1.7 cm. There is a heterogeneous circumscribed nodule which appears to have posterior acoustic enhancement, and measures 1.9 x 1.4 x 1.3 cm. There appear to be a few small internal cystic components. This nodule was previously biopsied. This measures approximately 1.2 x 1.3 cm on transverse imaging on 01/13/2019. IMPRESSION: 1. Previously biopsied nodule in the left thyroid appears overall stable in size compared to 01/13/2019. 2. Subcentimeter nodule in the right thyroid lobe, may be a cyst. This does not yet qualify for tissue sampling. Dictated by: Dictated on workstation # [id number]
== END ==
LOC: RAD 07:29
PROVIDERS: ATTEND Otolaryngology Otolaryngology/Facial Plastic Surgery
DX: E04.2 Nontoxic multinodular goiter (principal)
CPT/HCPCS: 76536

== ENCOUNTER 2019-11-25 12:43 | Inpatient (IN) | payer MEDICARE, BC ==
[~2019-11-25] VITALS: Ht 182.9 cm; Wt 113.6 kg
[2019-11-25 12:45] VITALS: BP 147/87
[2019-11-25 14:39] VITALS: BP 147/87
[2019-11-25] MEDS ORDERED: ACETAMINOPHEN 325 MG TABLET PO PRN (15:15)
[2019-11-25] MEDS ORDERED: polyethylene glycoL POWDER 17 GM (MIRALAX) PACK PO PRN (15:15)
[2019-11-25] MEDS ORDERED: ANTACID SUSP 30 ML UDC (MYLANTA) PO PRN (15:15)
[2019-11-25] MEDS ORDERED: ONDANSETRON 4 MG/2 ML (SDV) Z0FRAN IV PRN (15:15)
[2019-11-25] MEDS ORDERED: ENOXAPARIN 40 MG/0.4 ML (LOVENOX) SYR SC SCH (15:15)
[2019-11-25] MEDS ORDERED: MELATONIN 3 MG TABLET PO PRN (15:15)
[2019-11-25] MEDS ORDERED: CATHETER FLUSH 10 ML SYR IV PRN (15:15)
--- NOTE | 2019-11-25 15:18 | History & Physical-Hospitalist ---
History of Present Illness HPI/Chief Complaint Patient is a 69-year-old male with past medical history of coronary artery disease, hypertension, hyperlipidemia who presented to outside emergency room due to chest pain. He states that he is normally able to walk at least 1 mile every morning but over the past 6 weeks he has had dyspnea on exertion. This morning he was not able to walk most of his walk due to dyspnea. This is accompanied by chest heaviness and jaw pain. It resolved with rest. He called his PCP who recommended evaluation in the emergency room. EKG was done and did not show a STEMI but troponin was elevated at 0.56 and serial troponin was 0.65. He was transferred here for cardiology evaluation. He states that he had a cardiac catheter 10 years ago with a stent placed. And his last stress test was roughly 9 months ago and was normal. He follows with Dr. Blas. He takes aspirin and Plavix regularly. Source: patient Date Seen 11/25/19 Time Seen by a Provider: 15:15 Attending Physician Aubrey Mercado MD PCP Eddie Ramsey DO Referring Physician Date of Admission Nov 25, 2019 at 13:50 Home Medications & Allergies Home Medications Reviewed patient Home Medication Reconciliation performed by pharmacy medication reconciliations pv design and installation technician and/or nursing. Patients Allergies have been reviewed. Allergies Allergies Coded Allergies No Known Drug Allergies (Unverified12/29/17) Past Hmokhbl-Gfsmyc-Okqrje Hx Past Med/Social Hx: Reviewed Nursing Past Med/Soc Hx Patient Social History Marrital Status: Employed/Student: retired Alcohol Use: Rarely Uses Number of Drinks Today: 0 Recreational Drug Use: No Smoking Status: Former Smoker Former Smoker, Quit: Sep 16, 1992 Physical Abuse Screen: No Sexual Abuse: No Recent Foreign Travel: No Contact w/other who traveled: No Recent Hopitalizations: No Recent Infectious Disease Expo: No Immunizations Up To Date Tetanus Booster (TDap): Unknown Pediatric: No Date of Pneumonia Vaccine: Jul 07, 2016 Date of Influenza Vaccine: Jun 15, 2017 Seasonal Allergies Seasonal Allergies: No Past Medical History Surgeries: Orthopedic Currently Using CPAP: Yes Cardiac: Coronary Artery Disease, High Cholesterol, Hypertension Reproductive: No Sexually Transmitted Disease: No HIV/AIDS: No Gastrointestinal: Gastroesophageal Reflux, Ulcer HEENT: Tinnitis Loss of Vision: Bilateral Hearing Impairment: Hard of Hearing History of Blood Disorders: No Adverse Reaction to Blood Moura: No (N/A) Family History Reviewed Nursing Family Hx Review of Systems Constitutional: No chills, No diaphoresis, No fever, No weakness EENTM: other (jaw pain) Respiratory: dyspnea on exertion; No orthopnea; short of breath Cardiovascular: chest pain Gastrointestinal: No abdominal pain, No constipation, No diarrhea, No nausea, No vomiting Genitourinary: no symptoms reported Musculoskeletal: no symptoms reported Skin: no symptoms reported Psychiatric/Neurological: No Symptoms Reported Physical Exam Physical Exam Vital Signs Vital Signs - First Documented 11/25/19 11/25/19 12:45 16:39 Temp 36.1 Pulse 65 Resp 20 B/P (MAP) 147/87 (107) Pulse Ox 97 O2 Delivery Room Air FiO2 21 Capillary Refill : Height, Weight, BMI Height: 6'0.00" Weight: 259lbs. 0.0oz. [id number]; 33.95 BMI Method: General Appearance: No Apparent Distress, WD/WN, Obese HEENT: PERRL/EOMI, Moist Mucous Membranes; No Scleral Icterus (L), No Scleral Icterus (R) Neck: Supple; No Thyromegaly Respiratory: Chest Non Tender, Lungs Clear, No Accessory Muscle Use, No Respiratory Distress Cardiovascular: Regular Rate, Rhythm, No JVD, No Murmur Gastrointestinal: Non Tender, Soft Extremity: Non Tender, No Calf Tenderness, No Pedal Edema Neurologic/Psychiatric: Alert, Oriented x3, Normal Mood/Affect Skin: Normal Color, Warm/Dry Results Results/Procedures Labs Patient resulted labs reviewed. Assessment/Plan Admission Diagnosis Chest Pain Admission Status: Observation Assessment and Plan Chest Pain CAD NSTEMI Symptoms concerning for typical chest pain Elevated troponin at outside hospital Repeat here Cardiology consulted Telemetry echo HTN HLD Continue home meds MAGDALENA Pt to bring home CPAP Diagnosis/Problems Diagnosis/Problems (1) Chest pain Status: Acute Qualifiers: Chest pain type: unspecified Qualified Codes: R07.9 - Chest pain, unspecified (2) HLD (hyperlipidemia) Qualifiers: Hyperlipidemia type: mixed hyperlipidemia Qualified Codes: E78.2 - Mixed h yperlipidemia (3) Hypertension Qualifiers: Hypertension type: essential hypertension Qualified Codes: I10 - Essential (primary) hypertension Clinical Quality Measures DVT/VTE Risk/Contraindication: Risk Factor Score Per Nursin RFS Level Per Nursing on Admit: 2=Moderate AUBREY MERCADO MD 27, 2020 15:18
--- NOTE | 2019-11-25 15:52 | NUR ---
UNABLE TO COMPLETE MED REC AT THIS TIME. SOMEONE FROM THE [facility] WAS IN WITH THE PT AND RT WAS WAITING TO GO IN I WILL COMPLETE THE MED REC AT A LATER DATE
[2019-11-25 16:00] VITALS: BP 136/83
[2019-11-25 16:39] VITALS: BP 147/87
--- NOTE | 2019-11-25 16:46 | NUR ---
0.299 TROPONIN REPORTED TO Danilo. REPEAT TROPONIN ORDERED IN 4 HRS
[2019-11-25] MEDS ORDERED: RT-ALBUTEROL SULF 2.5 MG/3 ML PRE-MIX VIAL INH PRN (18:00)
[2019-11-25 20:00] VITALS: BP 123/75
[2019-11-25] MEDS ORDERED: PATIENT MAY USE OWN MEDS, ALL MC SCH (21:00)
[2019-11-25] MEDS ORDERED: PRIMIDONE 50 MG TAB (MYSOLINE) PO SCH (21:00)
--- NOTE | 2019-11-25 21:00 | NUR ---
Pt already took his home med - Primidone 50mg prior to this RN's shift. Dr. alfaro.
--- NOTE | 2019-11-25 21:44 | NUR ---
Received critical report from Lab, repeat troponin = 0.329. Notified Dr. Mercado and Dr. Cerda. Received order to make pt NPO for a possible heart cath tomorrow.
[2019-11-25] MEDS: CATHETER FLUSH 10 ML SYR IV SCH (22:00)
[2019-11-25 23:30] VITALS: BP 116/74
[2019-11-26] VITALS (8 sets, daily range): BP systolic 109–131; BP diastolic 73–89
[2019-11-26 04:04] LABS: HEMOGLOBIN 15.2 G/DL (13.3-17.7); WHITE BLOOD COUNT 6.6 10^3/uL (4.3-11.0)
[2019-11-26 04:27] LABS: BUN/CREATININE RATIO 12; CALCIUM 9.1 MG/DL (8.5-10.1); CARBON DIOXIDE 18 MMOL/L (21-32); CHLORIDE 108 MMOL/L (98-107); CREATININE SERUM 1.05 MG/DL (0.60-1.30); GFR ESTIMATED > 60; GLUCOSE 102 MG/DL (70-105); SODIUM 138 MMOL/L (135-145)
[2019-11-26] MEDS: CATHETER FLUSH 10 ML SYR IV SCH ×3 (06:06→20:59)
[2019-11-26] MEDS: OMEGA PO SCH ×2 (08:45→20:51)
[2019-11-26] MEDS: ASPIRIN 81 MG CHEW (CHILDREN'S ASA) PO SCH (08:45)
[2019-11-26] MEDS: PANTOPRAZOLE 40 MG (PROTONIX) TAB PO SCH (08:46)
[2019-11-26] MEDS: (Benazepril HCl 40 MG) PO SCH (08:47)
[2019-11-26] MEDS: CLOPIDOGREL 75 MG (PLAVIX) TABLET PO SCH (08:47)
[2019-11-26] MEDS: amLODIPine 10 MG (NORVASC) TAB PO SCH (08:48)
--- NOTE | 2019-11-26 13:00 | NUR ---
off floor at this time for cardiac cath
[2019-11-26] MEDS ORDERED: NS IV 1000 ML 1,000 ML ONE (13:17)
[2019-11-26] MEDS ORDERED: LIDOCAINE 1% INJ 20 ML 20 ML VIAL ONE (13:17)
[2019-11-26] MEDS ORDERED: MIDAZOLAM 5 MG/5 ML (VERSED) VIAL ONE (13:17)
[2019-11-26] MEDS ORDERED: fentaNYL INJECTION 100 MCG/2 ML AMP ONE ×2 (13:17→14:51)
[2019-11-26] MEDS ORDERED: HEParin (CATH LAB) 2,000 ML IV ONE (13:18)
[2019-11-26] MEDS ORDERED: HEParin 1000 UNIT/ML (10ML VIAL) FOR BOLUS ONE (14:05)
[2019-11-26] MEDS ORDERED: TICAGRELOR 90 MG TABLET (BRILINTA) PO ONE (14:13)
[2019-11-26] MEDS ORDERED: NS IV 1000 ML 1,000 ML IV SCH (14:15)
--- NOTE | 2019-11-26 14:17 | Progress Note - Hospitalist ---
Subjective HPI/CC On Admission Date Seen by Provider: Nov 26, 2019 Time Seen by Provider: 12:15 Patient is a 69-year-old male with past medical history of coronary artery disease, hypertension, hyperlipidemia who presented to outside emergency room due to chest pain. He states that he is normally able to walk at least 1 mile every morning but over the past 6 weeks he has had dyspnea on exertion. This morning he was not able to walk most of his walk due to dyspnea. This is accompanied by chest heaviness and jaw pain. It resolved with rest. He called his PCP who recommended evaluation in the emergency room. EKG was done and did not show a STEMI but troponin was elevated at 0.56 and serial troponin was 0.65. He was transferred here for cardiology evaluation. He states that he had a cardiac catheter 10 years ago with a stent placed. And his last stress test was roughly 9 months ago and was normal. He follows with Dr. Blas. He takes aspirin and Plavix regularly. Subjective/Events-last exam Pt reports doing well. No complaints. Chest pressure resolved. Objective Exam Vital Signs Vital Signs Date Time Temp Pulse Resp B/P (MAP) Pulse Ox O2 Delivery O2 Flow Rate FiO2 11/26/19 13:00 76 11/26/19 11:51 36.8 18 128/73 (91) 98 Room Air 11/25/19 16:39 21 Capillary Refill : Less Than 3 Seconds General Appearance: No Apparent Distress, WD/WN Respiratory: Lungs Clear, No Respiratory Distress Cardiovascular: Regular Rate, Rhythm, No Murmur Results/Procedures Lab Laboratory Tests 11/26/19 03:49 Patient resulted labs reviewed. Assessment/Plan Assessment and Plan Assess & Plan/Chief Complaint Chest Pain CAD NSTEMI Symptoms concerning for typical chest pain Troponin remains elevated Cardiology consulted, appreciate recs Telemetry echo pending Plan for cath today HTN HLD Continue home meds MAGDALENA home CPAP Diagnosis/Problems Diagnosis/Problems (1) Chest pain Status: Acute Qualifiers: Chest pain type: unspecified Qualified Codes: R07.9 - Chest pain, unspecified (2) HLD (hyperlipidemia) Qualifiers: Hyperlipidemia type: mixed hyperlipidemia Qualified Codes: E78.2 - Mixed hyperlipidemia (3) Hypertension Qualifiers: Hypertension type: essential hypertension Qualified Codes: I10 - Essential (primary) hypertension Clinical Quality Measures DVT/VTE Risk/Contraindication: Risk Factor Score Per Nursin RFS Level Per Nursing on Admit: 2=Moderate AUBREY ROLDAN MD Nov 26, 2019 14:17
[2019-11-26] MEDS ORDERED: MIDAZOLAM 2 MG/2 ML (VERSED) VIAL ONE ×2 (14:51→15:43)
--- NOTE | 2019-11-26 16:16 | Coronary Angiography & PCI ---
Coronary Angiography & PCI DATE OF PROCEDURE: 11/26/19 INDICATION: Non-STEMI. PREOPERATIVE DIAGNOSIS: Non-STEMI. POSTOPERATIVE DIAGNOSIS: Severe proximal RCA stenosis treated with a drug- eluting stent. HISTORY: This is a 69-year-old gentleman with non-STEMI. Previous history of RCA PCI by Dr. Nuñez. Therefore, the patient was scheduled for coronary angiography. PROCEDURES PERFORMED: 1.Coronary angiography. 2.Left heart catheterization. 3.PCI to the proximal RCA with a drug-eluting stent. COMPLICATIONS: None. SPECIMENS: None. ESTIMATED BLOOD LOSS: 10 mL ANESTHESIA: Conscious sedation ANTICOAGULATION: IV heparin CONTRAST: 160 mL. FLUOROSCOPY: 30 minutes. FLOUROSCOPY DOSE: [id number] mgy. PROCEDURE DETAILS: The patient is a 69 male and was brought to the lab director after informed consent was taken. All the risks and complications were explained in detail; this included the risk of bleeding, vascular damage, stroke, GA and even . The patient was draped and prepped in the usual sterile fashion. Access was gained in the right femoral artery with a 6 [place] sheath. Coronary angiography and left heart catheterization was performed with a JR4 and JL4 catheter. FINDINGS: 1.Left main: Mild mid disease. Stenosis severity 30 percent. 2.LAD: Mild diffuse disease. A small caliber diagonal artery has moderate to severe ostial stenosis. 3.Left circumflex artery: Mild diffuse disease with no focal stenosis. 4.RCA: Severe subtotal occlusion of the proximal RCA with RUIZ 2 flow distally. 5.Left heart catheterization: LV pressure 100/5 mmHg. LVEDP 8 mmHg. Aortic pressure 103/60 mmHg. Normal LV function with no significant wall motion abnormalities. No gradient across the aortic valve. RECOMMENDATIONS: PCI to the proximal RCA is recommended. INTERVENTION DETAILS: We started with a JR4 guide catheter, whisper extra-support guidewire, IV heparin for anticoagulation. ACT during the procedure was over 220 seconds. Brilinta 180 mg by mouth was given bolus. We were able to cross the lesion with the whisper guidewire and placed the tip of the wire in the distal RCA. However the ostium and the proximal part of the RCA is like a martinez's hook and it was very difficult to get a balloon to the lesion since it would push the guide ca theter back. We therefore switched to a hockey stick guide catheter. We crossed the lesion with the whisper extra-support guidewire as well as a BMW wire. With this we were able to do a balloon dilatation with an emerge 2.0 x 8 mm balloon. This was done 3 times in the entire lesion segment. While the balloon was up we used it as an anchor to move the BMW wire even further. And also were able to advance the guide catheter deeper into the proximal RCA for better support. We then took the 2.0 x 8 mm balloon out and advanced a 2.5 x 15 mm balloon and did 2 inflations at 12 lakhwinder. Significant residual stenosis was noted. This balloon was also taken out. We then took a science Yulissa 3.5 x 23 mm stent but while we were advancing the stent to the lesion in the guide catheter was pushed out into the aorta and all the wires were pulled out as well. At this point in time we decided to change the guide catheter to a martinez's cook RCA. We again crossed the lesion with both the BMW and the whisper wire. We then advanced the 2.0 x 8 mm balloon. The balloon was again deployed in the proximal RCA as an anchor. This helped us to advance the BMW wire further distally. We were also able to advance the guide catheter further deep. The balloon was then taken out. We then took a science Yulissa 3.5 x 23 mm stent and deployed it at 18 lakhwinder for 55 seconds. The stent balloon was used to post dilate the overlap area with the prior stent at 18 lakhwinder for 17 seconds. We then pulled back the stent balloon and performed another balloon inflation at 18 lakhwinder for 9 seconds. Excellent results with RUIZ 3 flow and no residual stenosis. All the wires and stent balloon was taken out and final picture looked excellent. Patient tolerated procedure well and did not have any complication the right femoral artery was closed with a minx device. CONCLUSIONS: 1. Severe proximal RCA stenosis treated successfully with a drug-eluting stent. 2. Dual antiplatelet therapy with aspirin and Brilinta. Continue beta pily, ALISE inhibitor and high-dose statin therapy. Rui Cerda MD, FACP, FACC, [facility] Interventional Cardiology Ryder CERDA MD Nov 26, 2019 16:16
--- NOTE | 2019-11-26 16:16 | Consultation-Cardiology ---
HPI-Cardiology Cardiology Consultation: Date of Consultation 11/26/19 Date of Admission Attending Physician Joana Mercado MD Admitting Physician Eddie Ramsey DO Consulting Physician Ryder CERDA MD HPI: Time Seen by a Provider: 11:00 Chief Complaint: Chest pain This is a 69-year-old gentleman who has past medical history of CAD, PCI, hypertension, hyperlipidemia. He follows with Dr. Nuñez. He is been complaining of worsening chest pain. Chest pain with exertion. Which started 6 weeks ago but is gradually worsening. On the day of his admission to the ER chest pain radiated to the jaw as well. Moderate intensity pain. Exertion worsened the pain and rest improved. Previous history of PCI to the RCA by Dr. Nuñez. Patient was transferred to her hospital with the working diagnosis of non-STEMI. He takes aspirin and Plavix. Denies active smoking. No pertinent family history. Review of Systems-Cardiology Review of Systems Constitutional: As described under HPI; No As described under HPI, No no symptoms reported, No chills, No fever, No lightheadedness Eyes: No As described under HPI, No no symptoms reported, No blindness, No blurred vision, No contact lenses, No drainage, No decreased acuity, No foreign body sensation, No pain, No vision change Ears/Nose/Throat: No As described under HPI, No no symptoms reported, No chronic hearing loss, No ear discharge, No ear pain, No nasal drainage, No ulcerations Respiratory: No no symptoms reported; As described under HPI; No As described under HPI, No cough, No orthopnea, No shortness of breath, No SOB with excertion Cardiovascular: No no symptoms reported; As described under HPI; No As described under HPI; chest pain; No edema, No irregular heart rate, No lightheadedness, No palpitations Gastrointestinal: No no symptoms reported, No As described under HPI, No abdomen distended, No abdominal pain, No blood streaked bowels, No constipation, No diarrhea, No nausea, No vomiting, No stool coloration changes Genitourinary: No As described under HPI, No burning, No dysuria, No discharge, No frequency, No flank pain, No hematuria, No urgency Skin: No rash, No skin related problems, No ulcerations Psychiatric/Neurological: No anxiety, No depression, No seizure, No focal weakness, No syncope Hematologic: No bleeding abnormalities OIC-Ivxpua-Deqfzx Hx Patient Social History Marrital Status: Employed/Student: retired Alcohol Use: Rarely Uses Recreational Drug Use: No Smoking Status: Former Smoker Recent Foreign Travel: No Recent Infectious Disease Expo: No Physical Abuse Screen: No Sexual Abuse: No Immunizations Up To Date Tetanus Booster (TDap): Unknown Date of Pneumonia Vaccine: May 31, 2019 Date of Influenza Vaccine: Jun 15, 2017 Past Medical History PMH As described under Assessment. Allergies and Home Medications Allergies Coded Allergies: No Known Drug Allergies (Unverified , 12/29/17) Home Medications Amlodipine Besylate 10 Mg Tablet, 10 MG PO DAILY, (Reported) Ascorbate Calcium 500 Mg Tablet, 500 MG PO DAILY, (Reported) Aspirin 81 Mg Tab.chew, 81 MG PO DAILY, (Reported) Benazepril HCl 40 Mg Tab, 40 MG PO DAILY, (Reported) Clopidogrel Bisulfate 75 Mg Tablet, 75 MG PO DAILY, (Reported) Multivits-Minerals/FA/Lycopene 1 Each Capsule, 1 EACH PO DAILY, (Reported) [place] 3 Polyunsat Fatty Acids 1,000 Mg Cap, 2,000 MG PO DAILY, (Reported) Pantoprazole Sodium 40 Mg Tablet.dr, 40 MG PO DAILY, (Reported) Primidone 50 Mg Tablet, 100 MG PO HS, (Reported) Vitamin E 400 Unit Capsule, 800 UNIT PO DAILY, (Reported) Patient Home Medication List Home Medication List Reviewed: Yes Physical Exam-Cardiology Physical Exam Vital Signs/I&O 11/26/19 11/26/19 11/26/19 11/26/19 07:00 07:41 10:01 11:51 Temp 36.7 36.8 Pulse 58 61 57 Resp 18 18 B/P (MAP) 131/89 (103) 128/73 (91) Pulse Ox 98 96 98 O2 Delivery Room Air Room Air Room Air 11/26/19 11/26/19 11/26/19 11/26/19 13:00 16:00 16:14 17:00 Temp 36.2 Pulse 76 60 56 B/P (MAP) 123/78 (93) Pulse Ox 95 O2 Delivery Room Air 11/26/19 00:00 Intake Total 840 ml Balance 840 ml Capillary Refill : Less Than 3 Seconds Constitutional: appears stated age; No apparent distress; well-developed, well- nourished HEENT: PERRL; No discharge; hearing is well preserved, oral hygience is good; No ulceration, No xanthelasmas are seen Neck: No carotid bruit; carotid pulses are 2 + bilaterally Respiratory: chest is bilaterally symmetric, lungs clear to auscultation Cardiovascular: regular rate-rhythm, S1 and S2 Gastrointestinal: soft, audible bowel sounds; No spleenomegaly Rectal: deferred Extremities: normal range of motion, non-tender, normal inspection; No clubbing, No cyanosis; no lower extremity edema bilateral; No significant edema Neurologic/Psychiatric: no motor/sensory deficits, alert, normal mood/affect, oriented x 3, power is 5/5 both on sides Skin: normal color; No rash, No ulcerations Data Review Labs Laboratory Tests 11/25/19 19:24: Troponin I 0.329*H 11/25/19 20:29: Glucometer 116H 11/25/19 23:48: Troponin I 0.374*H 11/26/19 03:49: White Blood Count 6.6, Red Blood Count 5.05, Hemoglobin 15.2, Hematocrit 44, Mean Corpuscular Volume 88, Mean Corpuscular Hemoglobin 30, Mean Corpuscular Hemoglobin Concent 34, Red Cell Distribution Width 13.0, Platelet Count 227, Mean Platelet Volume 11.0H, Sodium Level 138, Potassium Level 4.0, Chloride Level 108H, Carbon Dioxide Level 18L, Anion Gap 12, Blood Urea Nitrogen 13, Creatinine 1.05, Estimat Glomerular Filtration Rate > 60, BUN/Creatinine Ratio 12, Glucose Level 102, Calcium Level 9.1 11/26/19 05:49: Glucometer 117H 11/26/19 10:53: Glucometer 108 ECG Impression ECG Initial ECG Rhythm: Normal Sinus Initial ECG Impression: Normal A/P-Cardiology Assessment/Admission Diagnosis Non-STEMI, Hypertension, Hyperlipidemia Plan Non-STEMI, aspirin, Plavix, heparin, urgent angiography is recommended. Informed consent was taken. All risks and benefits were discussed at length. 1 percent risk of complication was discussed. Patient accepted all complication and would like to proceed with the procedure. Hypertension, continue outpatient medications. Hyperlipidemia, high-dose statin therapy. Thank you for your consultation. Please call me if you have any questions. Rui Cerda MD, FACP, FACC, [facility] [place], [facility] Interventional Cardiology Cardiac Electrophysiology Vascular Medicine and Endovascular Interventions Clinical Quality Measures DVT/VTE Risk/Contraindication: Risk Factor Score Per Nursin RFS Level Per Nursing on Admit: 2=Moderate Ryder CERDA MD Nov 26, 2019 16:16
[2019-11-26] MEDS ORDERED: PATIENT MAY USE OWN MEDS, ALL PO SCH (16:30)
[2019-11-26] MEDS: NS IV 1000 ML 1,000 ML IV SCH (19:50)
[2019-11-26] MEDS: TICAGRELOR 90 MG TABLET (BRILINTA) PO SCH (20:58)
[2019-11-26] MEDS ORDERED: PRIMIDONE 50 MG TAB (MYSOLINE) PO SCH (21:00)
[2019-11-27] VITALS: BP 116/78
[2019-11-27] MEDS: NS IV 1000 ML 1,000 ML IV SCH ×2 (02:27→11:52)
[2019-11-27 03:56] LABS: HEMOGLOBIN 14.5 G/DL (13.3-17.7); RED CELL DISTRIBUTION WIDTH 12.9 % (10.0-14.5); WHITE BLOOD COUNT 7.9 10^3/uL (4.3-11.0)
[2019-11-27 04:00] VITALS: BP 134/90
[2019-11-27 04:44] LABS: BUN/CREATININE RATIO 14; CARBON DIOXIDE 17 MMOL/L (21-32); CHLORIDE 109 MMOL/L (98-107); CREATININE SERUM 1.07 MG/DL (0.60-1.30); GFR ESTIMATED > 60; GLUCOSE 93 MG/DL (70-105); SODIUM 137 MMOL/L (135-145)
[2019-11-27] MEDS: CATHETER FLUSH 10 ML SYR IV SCH ×2 (06:38→13:34)
[2019-11-27 08:00] VITALS: BP 133/72
[2019-11-27] MEDS: CLOPIDOGREL 75 MG (PLAVIX) TABLET PO SCH (08:02)
[2019-11-27] MEDS: (Benazepril HCl 40 MG) PO SCH (08:03)
[2019-11-27] MEDS: ASPIRIN 81 MG CHEW (CHILDREN'S ASA) PO SCH (08:04)
[2019-11-27] MEDS: amLODIPine 10 MG (NORVASC) TAB PO SCH (08:05)
[2019-11-27] MEDS: PANTOPRAZOLE 40 MG (PROTONIX) TAB PO SCH (08:05)
[2019-11-27] MEDS: OMEGA PO SCH (08:06)
[2019-11-27] MEDS: TICAGRELOR 90 MG TABLET (BRILINTA) PO SCH (08:07)
[2019-11-27] MEDS ORDERED: ASPIRIN E.C. 81 MG (ECOTRIN) TAB PO SCH (09:00)
--- NOTE | 2019-11-27 09:13 | Discharge Inst-Simple/Standard ---
Discharge Inst-Standard Patient Instructions/Follow Up Plan of Care/Instructions/FU: Please continue to take your medications as written. Please follow up with your PCP and your fur dressing supervisor to follow up this hospital stay. Activity as Tolerated: Yes Discharge Diet: Low Fat/Low Cholesterol, Cardiac Diet Return to The Hospital For: Chest pain, shortness of breath, fever, confusion, swelling or bleeding at the cath site, if you think you are getting worse. AUBREY ROLDAN MD Nov 27, 2019 09:13
--- NOTE | 2019-11-27 09:14 | Discharge Summary ---
Diagnosis/Chief Complaint Date of Admission Nov 26, 2019 at 11:00 Date of Discharge Discharge Date: Nov 27, 2019 Admission Diagnosis Chest Pain Primary Care BraulioEddie Richmond Discharge Diagnosis (1) Chest pain Status: Acute (2) HLD (hyperlipidemia) (3) Hypertension Discharge Summary Procedures/Consulations Cardiology- Dr Cerda Discharge Physical Exam Allergies: Coded Allergies: No Known Drug Allergies (Unverified , 12/29/17) Vitals & I&Os Vital Signs Date Time Temp Pulse Resp B/P (MAP) Pulse Ox O2 Delivery O2 Flow Rate FiO2 11/27/19 08:00 36.6 63 19 133/72 (92) 98 Room Air 11/25/19 16:39 21 General Appearance: No Apparent Distress, WD/WN Respiratory: Lungs Clear, No Respiratory Distress Cardiovascular: Regular Rate, Rhythm, No Murmur Gastrointestinal: Normal Bowel Sounds, Non Tender, Soft Neurologic/Psychiatric: Alert, Oriented x3 Hospital Course Pt was admitted due to NSTEMI. His symptoms resolved but his troponin continued to trend up and the decision was made to take him to the quality control lab technician for evaluation given known history of CAD. He was found to have significant stenosis of the RCA. Labs (last 24 hrs) Laboratory Tests 11/26/19 10:53: Glucometer 108 11/26/19 20:09: Glucometer 138H 11/27/19 03:13: White Blood Count 7.9, Red Blood Count 4.83, Hemoglobin 14.5, Hematocrit 42, Mean Corpuscular Volume 87, Mean Corpuscular Hemoglobin 30, Mean Corpuscular Hemoglobin Concent 35, Red Cell Distribution Width 12.9, Platelet Count 247, Mean Platelet Volume 11.0H, Sodium Level 137, Potassium Level 4.0, Chloride Level 109H, Carbon Dioxide Level 17L, Anion Gap 11, Blood Urea Nitrogen 15, Creatinine 1.07, Estimat Glomerular Filtration Rate > 60, BUN/Creatinine Ratio 14, Glucose Level 93, Calcium Level 9.0 Patient resulted labs reviewed. Pending Labs Laboratory Tests 11/27/19 03:13: White Blood Count 7.9, Red Blood Count 4.83, Hemoglobin 14.5, Hematocrit 42, Mean Corpuscular Volume 87, Mean Corpuscular Hemoglobin 30, Mean Corpuscular Hemoglobin Concent 35, Red Cell Distribution Width 12.9, Platelet Count 247, Mean Platelet Volume 11.0, Sodium Level 137, Potassium Level 4.0, Chloride Level 109, Carbon Dioxide Level 17, Anion Gap 11, Blood Urea Nitrogen 15, Creatinine 1.07, Estimat Glomerular Filtration Rate > 60, BUN/Creatinine Ratio 14, Glucose Level 93, Calcium Level 9.0 Discussion & Recommendations Discharge Planning: >30 minutes discharge planning Discharge Home Medications: Active Scripts Active Reported Vitamin E 400 Unit Capsule 800 Unit PO DAILY Vitamin C (Ascorbate Calcium) 500 Mg Tablet 500 Mg PO DAILY Primidone 50 Mg Tablet 100 Mg PO HS Men's Daily Formula Capsule (Multivits-Minerals/FA/Lycopene) 1 Each Capsule 1 Each PO DAILY Aspirin 81 Mg Tab.chew 81 Mg PO DAILY Clopidogrel (Clopidogrel Bisulfate) 75 Mg Tablet 75 Mg PO DAILY Pantoprazole Sodium 40 Mg Tablet.dr 40 Mg PO DAILY Fish Oil 1,000 mg Capsule ([place] 3 Polyunsat Fatty Acids) 1,000 Mg Cap 2,000 Mg PO DAILY Benazepril HCl 40 Mg Tab 40 Mg PO DAILY Amlodipine Besylate 10 Mg Tablet 10 Mg PO DAILY Instructions to patient/family Please see electronic discharge instructions given to patient. Clinical Quality Measures DVT/VTE Risk/Contraindication: Risk Factor Score Per Nursin RFS Level Per Nursing on Admit: 2=Moderate Copy Copies To 1: EDDIE LOERA DO Problem Qualifiers (1) Chest pain: Chest pain type: unspecified Qualified Codes: R07.9 - Chest pain, unspecified (2) HLD (hyperlipidemia): Hyperlipidemia type: mixed hyperlipidemia Qualified Codes: E78.2 - Mixed hyperlipidemia (3) Hypertension: Hypertension type: essential hypertension Qualified Codes: I10 - Essential (primary) hypertension AUBREY ROLDAN MD Nov 27, 2019 09:14
[2019-11-27 13:29] VITALS: BP 108/61
[2019-11-27] MEDS ORDERED: TICA90TA PO (14:22)
[2019-11-27] MEDS ORDERED: ATOR40TA PO (14:22)
--- NOTE | 2019-11-27 15:05 | Cardiology Progress Note ---
Cardiology SOAP Progress Note Subjective: No further cardiac complaints. Objective: I&O/Vital Signs 11/27/19 11/27/19 11/27/19 11/27/19 04:00 06:54 07:00 08:00 Pulse 61 56 B/P (MAP) 134/90 (105) Pulse Ox 95 99 O2 Delivery Room Air Room Air 11/27/19 11/27/19 11/27/19 11/27/19 08:00 10:32 12:00 13:00 Temp 36.6 Pulse 63 67 67 Resp 19 B/P (MAP) 133/72 (92) Pulse Ox 98 95 96 O2 Delivery Room Air Room Air 11/27/19 13:29 Pulse 58 Resp 24 B/P (MAP) 108/61 (77) Pulse Ox 97 O2 Delivery Room Air 11/27/19 00:00 Intake Total 1250 ml Balance 1250 ml Weight (Pounds): 259 Weight (Ounces): 0.0 Weight (Calculated Kilograms): 117.726223 Constitutional: appears stated age; No apparent distress; well-developed, well- nourished Respiratory: chest is bilaterally symmetric, lungs clear to auscultation Cardiovascular: regular rate-rhythm, S1 and S2 Gastrointestional: soft, audible bowel sounds; No spleenomegaly Extremities: normal range of motion, non-tender, normal inspection; No clubbing, No cyanosis; no lower extremity edema bilateral; No significant edema Neurologic/Psychiatric: no motor/sensory deficits, alert, normal mood/affect, oriented x 3, power is 5/5 both on sides Skin: normal color; No rash, No ulcerations Results/Procedures: Labs Laboratory Tests 11/26/19 20:09: Glucometer 138H 11/27/19 03:13: White Blood Count 7.9, Red Blood Count 4.83, Hemoglobin 14.5, Hematocrit 42, Mean Corpuscular Volume 87, Mean Corpuscular Hemoglobin 30, Mean Corpuscular Hemoglobin Concent 35, Red Cell Distribution Width 12.9, Platelet Count 247, Mean Platelet Volume 11.0H, Sodium Level 137, Potassium Level 4.0, Chloride Level 109H, Carbon Dioxide Level 17L, Anion Gap 11, Blood Urea Nitrogen 15, Creatinine 1.07, Estimat Glomerular Filtration Rate > 60, BUN/Creatinine Ratio 14, Glucose Level 93, Calcium Level 9.0 11/27/19 10:25: Glucometer 114H A/P: Assessment/Dx: Non-STEMI, Hypertension, Hyperlipidemia Plan: Non-STEMI - coronary angiography done 11/26/2019 showed subtotal proximal RCA occlusion with RUIZ 1/2 flow distally. Due to very tortuous proximal part of the RCA like a martinez's hook; very difficult PCI but was successful in the and with one drug-eluting stent with no residual stenosis and RUIZ-3 flow. Aspirin, Brilinta for at least 1 year. High-dose statin. Lisinopril and beta pily. Patient will follow-up with Dr. Nuñez. Hypertension, continue outpatient medications. Hyperlipidemia, high-dose statin therapy. Thank you for your consultation. Please call me if you have any questions. Rui Cerda MD, FACP, FACC, FSCAI, FHRS, CCDS Interventional Cardiology Cardiac Electrophysiology Vascular Medicine and Endovascular Interventions Ryder CERDA MD Nov 27, 2019 15:05
== END 2019-11-27 15:30 | disposition home or self-care (01) | DRG 247 ==
LOC: 4TH 13:50 → OBSVTOIN 11-26 11:00 → ICU 11-26 16:15
PROVIDERS: ADMIT Family Medicine; ATTEND Family Medicine
PROC: 027034Z Dilation of Coronary Artery, One Artery with Drug-eluting Intraluminal Device, Percutaneous Approach (ICD-10-PCS; principal; 2019-11-26)
PROC: 4A023N7 Measurement of Cardiac Sampling and Pressure, Left Heart, Percutaneous Approach (ICD-10-PCS; 2019-11-26)
PROC: B2111ZZ Fluoroscopy of Multiple Coronary Arteries using Low Osmolar Contrast (ICD-10-PCS; 2019-11-26)
DX: I21.4 Non-ST elevation (NSTEMI) myocardial infarction (principal); I25.10 Atherosclerotic heart disease of native coronary artery without angina pectoris; Z95.5 Presence of coronary angioplasty implant and graft; I10 Essential (primary) hypertension; E78.5 Hyperlipidemia, unspecified; K21.9 Gastro-esophageal reflux disease without esophagitis; G47.33 Obstructive sleep apnea (adult) (pediatric); Z87.891 Personal history of nicotine dependence
CPT/HCPCS: 36415; 80048; 82962; 84484; 85027; 93306; 93458

== ENCOUNTER → 2020-07-05 | Outpatient (CLI) | payer MEDICARE, BC ==
[~2020-07-05] MED LIST changes: +AMLO-251 PO; -AMLO10TA7 PO; +ATOR40TA PO; -PANT40TA3 PO; +PANT40TA52 PO; +TICA90TA PO
--- NOTE | 2020-07-05 11:42 | Diagnostic Imaging Report ---
PROCEDURE: US Thyroid. TECHNIQUE: Multiple real-time grayscale images were obtained of the thyroid in various projections. INDICATION: Thyroid nodules, follow-up. Correlation is made with prior thyroid ultrasound from 07/01/2019. Right lobe of the thyroid measures 4.5 x 1.9 x 1.6 cm and the left lobe measures 4.4 x 2.3 x 1.5 cm. Mixed solid and cystic circumscribed nodule in the upper pole of the right lobe measures 7 mm x 8 mm x 5 mm, unchanged. Hypoechoic solid-appearing nodule in the upper pole of the left lobe measures 1.3 x 1.6 x 1.2 cm compared with 1.9 x 1.4 x 1.3 cm on prior. No new mass is detected. IMPRESSION: Stable thyroid ultrasound. The dominant nodule in the upper pole of the left lobe does appear slightly smaller on today's study when compared with the examination one year earlier. Dictated by: Dictated on workstation # [id number]
== END ==
LOC: RAD 10:42
PROVIDERS: ATTEND Otolaryngology Otolaryngology/Facial Plastic Surgery
DX: E04.1 Nontoxic single thyroid nodule (principal)
CPT/HCPCS: 76536

== ENCOUNTER 2021-02-13 13:22 | Emergency (ER) | payer MEDICARE, BC ==
[~2021-02-13] VITALS: Ht 182 cm; Wt 111.0 kg
[~2021-02-13 13:22] MED LIST changes: -OXYC-471 PO; +OXYC1TAB11 PO
--- NOTE | 2021-02-13 13:44 | ED Chest Pain ---
General Chief Complaint: Chest Pain Stated Complaint: CP Nursing Triage Note: PT AMB TO ROOM 1 PT CO OF CHEST PAIN THAT RADIATES DOWN L ARM AND L SIDE OF NECK, HAD SOA YESTERDAY L ARM DISCOMFORT 12/08 Nursing Sepsis Screen: No Definite Risk Source: patient Exam Limitations: no limitations History of Present Illness Date Seen by Provider: Feb 13, 2021 Time Seen by Provider: 13:44 Initial Comments This is a well-appearing 70-year-old male who presents to the ER with complaints of Chest pain that radiates to his left neck and left arm. States it feels like when he had a prior non-STEMI. Reports shortness of breath while climbing the stairs from his basement yesterday. Currently reporting left arm discomfort 12/08. Allergies and Home Medications Allergies Coded Allergies: No Known Drug Allergies (Unverified , 12/29/17) Home Medications Amlodipine Besylate 10 Mg Tablet, 10 MG PO DAILY, (Reported) Ascorbate Calcium 500 Mg Tablet, 500 MG PO DAILY, (Reported) Aspirin 81 Mg Tab.chew, 81 MG PO DAILY, (Reported) Atorvastatin Calcium 40 Mg Tablet, 40 MG PO HS Prescribed by: AUBREY ROLDAN on 11/27/19 1432 Benazepril HCl 40 Mg Tab, 40 MG PO DAILY, (Reported) Multivits-Minerals/FA/Lycopene 1 Each Capsule, 1 EACH PO DAILY, (Reported) [place] 3 Polyunsat Fatty Acids 1,000 Mg Cap, 2,000 MG PO DAILY, (Reported) Pantoprazole Sodium 40 Mg Tablet.dr, 40 MG PO DAILY, (Reported) Primidone 50 Mg Tablet, 100 MG PO HS, (Reported) Ticagrelor 90 Mg Tablet, 90 MG PO BID Prescribed by: AUBREY ROLDAN on 11/27/19 1432 Vitamin E 400 Unit Capsule, 800 UNIT PO DAILY, (Reported) Patient Home Medication List Home Medication List Reviewed: Yes Review of Systems Review of Systems Constitutional: no symptoms reported EENTM: No Symptoms Reported Respiratory: See HPI Cardiovascular: See HPI Gastrointestinal: No Symptoms Reported Genitourinary: No Symptoms Reported Musculoskeletal: no symptoms reported Skin: no symptoms reported Psychiatric/Neurological: No Symptoms Reported Endocrine: No Symptoms Reported Hematologic/Lymphatic: No Symptoms Reported Past Wgsdvsa-Hwxznx-Ckvflx Hx Patient Social History Former Smoker, Quit: Sep 16, 1992 Recent Infectious Disease Expo: No Recent Hopitalizations: No Immunizations Up To Date Tetanus Booster (TDap): Unknown PED Vaccines UTD: No Date of Pneumonia Vaccine: May 31, 2019 Date of Influenza Vaccine: Jun 15, 2017 Seasonal Allergies Seasonal Allergies: No Past Medical History Surgeries: Yes (CARDIAC STENT JANUARY 2012, LEFT FOOT, BILAT CARPAL TUNNEL, ) Orthopedic Respiratory: Yes Sleep Apnea Currently Using CPAP: Yes Cardiac: Yes Coronary Artery Disease, High Cholesterol, Hypertension Neurological: No Reproductive Disorders: No Sexually Transmitted Disease: No HIV/AIDS: No Gastrointestinal: Yes (BLEEDING ULCER 7 YEARS AGO) Gastroesophageal Reflux, Ulcer Musculoskeletal: No Endocrine: No HEENT: Yes Tinnitis Loss of Vision: Bilateral Hearing Impairment: Hard of Hearing Cancer: No Psychosocial: No Integumentary: No Blood Disorders: No Adverse Reaction/Blood Tranf: No (N/A) Physical Exam Vital Signs Vital Signs - First Documented 02/13/21 02/13/21 13:25 13:43 Temp 36.4 Pulse 69 Resp 21 B/P (MAP) 144/96 (112) Pulse Ox 96 O2 Delivery Room Air Capillary Refill : Less Than 3 Seconds Height, Weight, BMI Height: 6'0.00" Weight: 259lbs. 0.0oz. 117.177571kc; 33.00 BMI Method: General Appearance: No Apparent Distress, WD/WN HEENT: PERRL/EOMI, Normal ENT Inspection, Pharynx Normal, Moist Mucous Membranes Neck: Full Range of Motion, Normal Inspection Respiratory: Chest Non Tender, Lungs Clear, Normal Breath Sounds, No Accessory Muscle Use Cardiovascular: Regular Rate, Rhythm, No Murmur, Normal Peripheral Pulses Gastrointestinal: Normal Bowel Sounds, Non Tender, Soft Extremity: Normal Capillary Refill, Normal Inspection, Normal Range of Motion, No Calf Tenderness Neurologic/Psychiatric: Alert, Oriented x3, No Motor/Sensory Deficits, Normal Mood/Affect Skin: Normal Color, Warm/Dry Progress/Results/Core Measures Results/Orders Lab Results Laboratory Tests Test 02/13/21 13:30 02/13/21 13:55 02/13/21 15:33 02/13/21 17:30 Range/Units White Blood Count 8.7 4.3-11.0 10^3/uL Red Blood Count 4.96 4.30-5.52 10^6/uL Hemoglobin 15.3 13.3-17.7 g/dL Hematocrit 45 40-54 % Mean Corpuscular Volume 91 80-99 fL Mean Corpuscular Hemoglobin 31 25-34 pg Mean Corpuscular Hemoglobin Concent 34 32-36 g/dL Red Cell Distribution Width 12.3 10.0-14.5 % Platelet Count 251 130-400 10^3/uL Mean Platelet Volume 10.6 9.0-12.2 fL Immature Granulocyte % (Auto) 1 % Neutrophils (%) (Auto) 67 42-75 % Lymphocytes (%) (Auto) 23 12-44 % Monocytes (%) (Auto) 6 0-12 % Eosinophils (%) (Auto) 2 0-10 % Basophils (%) (Auto) 0 0-10 % Neutrophils # (Auto) 5.9 1.8-7.8 10^3/uL Lymphocytes # (Auto) 2.0 1.0-4.0 10^3/uL Monocytes # (Auto) 0.6 0.0-1.0 10^3/uL Eosinophils # (Auto) 0.2 0.0-0.3 10^3/uL Basophils # (Auto) 0.0 0.0-0.1 10^3/uL Immature Granulocyte # (Auto) 0.1 0.0-0.1 10^3/uL Sodium Level 140 135-145 MMOL/L Potassium Level 4.6 3.6-5.0 MMOL/L Chloride Level 107 98-107 MMOL/L Carbon Dioxide Level 22 21-32 MMOL/L Anion Gap 11 5-14 MMOL/L Blood Urea Nitrogen 13 7-18 MG/DL Creatinine 1.13 0.60-1.30 MG/DL Estimat Glomerular Filtration Rate > 60 BUN/Creatinine Ratio 12 Glucose Level 107 H 70-105 MG/DL Calcium Level 9.7 8.5-10.1 MG/DL Corrected Calcium 9.3 8.5-10.1 MG/DL Magnesium Level 2.4 1.6-2.4 MG/DL Total Bilirubin 0.5 0.1-1.0 MG/DL Aspartate Amino Transf (AST/SGOT) 21 5-34 U/L Alanine Aminotransferase (ALT/SGPT) 21 0-55 U/L Alkaline Phosphatase 72 40-136 U/L Creatine Kinase MB 1.3 <6.6 NG/ML Myoglobin 35.3 10.0-92.0 NG/ML Troponin I < 0.028 < 0.028 < 0.028 <0.028 NG/ML B-Type Natriuretic Peptide < 10.0 <100.0 PG/ML Total Protein 7.8 6.4-8.2 GM/DL Albumin 4.5 3.2-4.5 GM/DL Prothrombin Time 13.7 12.2-14.7 SEC INR Comment 1.0 0.8-1.4 Activated Partial Thromboplast Time 36 H 24-35 SEC My Orders Orders - LARRY TORRES DIESEL STATIONARY ENGINEER Cbc With Automated Diff (02/13/21 13:42) Magnesium (02/13/21 13:42) Chest 1 View, Ap/Pa Only (02/13/21 13:42) Comprehensive Metabolic Panel (02/13/21 13:42) Myoglobin Serum (02/13/21 13:42) Protime With Inr (02/13/21 13:42) Partial Thromboplastin Time (02/13/21 13:42) O2 (02/13/21 13:42) Monitor-Rhythm Ecg Trace Only (02/13/21 13:42) Ed Iv/Invasive Line Start (02/13/21 13:42) Creatine Kinase Mb (02/13/21 13:42) Troponin I (02/13/21 13:42) Nitroglycerin 0.4 Mg Btl 25's (Nitrostat (02/13/21 13:45) Aspirin Chewable Tablet (Baby Aspirin Ch (02/13/21 13:45) BNP (02/13/21 14:23) Troponin I (02/13/21 15:30) Troponin I (02/13/21 17:36) Ekg Tracing (02/13/21 13:29) Medications Given in ED Vital Signs/I&O 02/13/21 02/13/21 02/13/21 13:25 13:43 18:04 Temp 36.4 Pulse 69 58 Resp 21 18 B/P (MAP) 144/96 (112) 123/82 (112) Pulse Ox 96 96 O2 Delivery Room Air Room Air Blood Pressure Mean: 112 Progress Progress Note : Progress Note Patient examined and in no acute distress. Orders given for cardiac workup, ASA 324mg, and Nitro 0.4mg SL. States pain went from 2/10 to 4/10 after receiving ASA and Nitro. CXR neg for acute pathology. Labs reviewed and are unremarkable. Troponin negative. Orders placed for 2 hour repeat. Initial ECG Impression Date: Feb 13, 2021 Initial ECG Impression Time: 13:29 Initial ECG Rate: 66 Initial ECG Rhythm: Normal Sinus Initial ECG Intervals: Normal Initial ECG Impression: Normal Initial ECG Comparisson: Unchanged Diagnostic Imaging Diagonstic Imaging: Xray Plain Films/CT/US/NM/MRI: chest Comments [facility], [place] NAME: [facility] REC#: [id number] PT STATUS: REG ER : 1950 PHYSICIAN: LARRY TORRES DIESEL STATIONARY ENGINEER ADMIT DATE: 02/13/21/ER Draft Date of Exam:02/13/21 CHEST 1 VIEW, AP/PA ONLY INDICATION: Chest pain. TECHNIQUE/COMPARISON: A frontal chest was obtained at 2:07 PM. FINDINGS: The heart and mediastinal silhouette are normal in appearance. The lungs are clear. There is no pneumothorax or pleural fluid. IMPRESSION: Negative chest. Dictated on workstation # [id number] Dict: 02/13/21 1426 Trans: 02/13/21 1428 [id number] Interpreted by: BANDAR OLSON MD Electronically signed by: Reviewed: Reviewed by Me Departure Communication (Admissions) Time/Spoke to Consulting Phy: 15:[address] Durán. states patient could be admitted observation or we can obtain another troponin and if negative just have him follow-up with Dr. Nuñez. Impression Primary Impression: Chest pain Disposition: 01 HOME, SELF-CARE Condition: Improved Departure-Patient Inst. Decision time for Depature: 17:45 Referrals: TONO LOERA DO (PCP/Family) Primary Care Physician Patient Instructions: Chest Pain Add. Discharge Instructions: Plan: 1. Call Dr. Nuñez office to schedule follow up within the next 1-2 weeks. 2. Continue your medications as directed. 3. Return to ER for any new, concerning, or worsening symptoms. All discharge instructions reviewed with patient and/or family. Voiced understanding. LARRY TORRES DIESEL STATIONARY ENGINEER Feb 13, 2021 13:44
[2021-02-13] MEDS ORDERED: ASPIRIN 81 MG CHEW (CHILDREN'S ASA) PO ONE (13:45)
[2021-02-13] MEDS ORDERED: NITROGLYCERIN 0.4 MG SL TABS BTL 25'S SL PRN (13:45)
[2021-02-13 13:56] LABS: ALBUMIN 4.5 GM/DL (3.2-4.5); BASOPHILS % (AUTO) 0 % (0-10); CHLORIDE 107 MMOL/L (98-107); EOSINOPHILS # (AUTO) 0.2 10^3/uL (0.0-0.3); EOSINOPHILS % (AUTO) 2 % (0-10); HEMATOCRIT 45 % (40-54); HEMOGLOBIN 15.3 g/dL (13.3-17.7); LYMPHOCYTES % (AUTO) 23 % (12-44); MEAN CORPUSCULAR HEMOGLOBIN 31 pg (25-34); MEAN CORPUSCULAR HGB CONC 34 g/dL (32-36); MEAN CORPUSCULAR VOLUME 91 fL (80-99); MEAN PLATELET VOLUME 10.6 fL (9.0-12.2); MONOCYTES # (AUTO) 0.6 10^3/uL (0.0-1.0); MONOCYTES % (AUTO) 6 % (0-12); NEUTROPHILS # (AUTO) 5.9 10^3/uL (1.8-7.8); NEUTROPHILS % (AUTO) 67 % (42-75); PLATELET COUNT 251 10^3/uL (130-400); POTASSIUM 4.6 MMOL/L (3.6-5.0); SODIUM 140 MMOL/L (135-145); WHITE BLOOD COUNT 8.7 10^3/uL (4.3-11.0)
[2021-02-13 13:57] LABS: CALCIUM 9.7 MG/DL (8.5-10.1)
[2021-02-13 13:58] LABS: GLUCOSE 107 MG/DL (70-105); TOTAL PROTEIN 7.8 GM/DL (6.4-8.2)
[2021-02-13 13:59] LABS: CARBON DIOXIDE 22 MMOL/L (21-32)
[2021-02-13 14:00] LABS: BILIRUBIN,TOTAL 0.5 MG/DL (0.1-1.0)
[2021-02-13 14:01] LABS: ALKALINE PHOSPHATASE 72 U/L (40-136)
[2021-02-13 14:02] LABS: CREATININE SERUM 1.13 MG/DL (0.60-1.30); GFR ESTIMATED > 60
[2021-02-13 14:03] LABS: BUN/CREATININE RATIO 12
[2021-02-13 14:04] LABS: MAGNESIUM 2.4 MG/DL (1.6-2.4)
[2021-02-13 14:05] LABS: ALANINE AMINOTRANSFERASE 21 U/L (0-55)
[2021-02-13 14:13] LABS: CREATINE KINASE MB 1.3 NG/ML (<6.6)
[2021-02-13 14:14] LABS: PROTHROMBIN TIME PATIENT 13.7 SEC (12.2-14.7)
--- NOTE | 2021-02-13 14:29 | Diagnostic Imaging Report ---
INDICATION: Chest pain. TECHNIQUE/COMPARISON: A frontal chest was obtained at 2:07 PM. FINDINGS: The heart and mediastinal silhouette are normal in appearance. The lungs are clear. There is no pneumothorax or pleural fluid. IMPRESSION: Negative chest. Dictated by: Dictated on workstation # [id number]
[2021-02-13 18:04] VITALS: BP 123/82
== END 2021-02-13 18:04 | disposition home or self-care (01) ==
LOC: EDUNIT# 13:22 → ER 13:24
DX: R07.9 Chest pain, unspecified (principal); I10 Essential (primary) hypertension; I25.10 Atherosclerotic heart disease of native coronary artery without angina pectoris; E78.00 Pure hypercholesterolemia, unspecified; G47.30 Sleep apnea, unspecified; K21.9 Gastro-esophageal reflux disease without esophagitis; Z99.89 Dependence on other enabling machines and devices; Z87.891 Personal history of nicotine dependence; Z95.5 Presence of coronary angioplasty implant and graft; Z79.82 Long term (current) use of aspirin; Z79.899 Other long term (current) drug therapy
CPT/HCPCS: 36415; 71045; 80053; 82553; 83735; 83874; 83880; 84484; 85025; 85610; 85730; 93005; 93041

== ENCOUNTER → 2021-02-26 | Outpatient (CLI) | payer MEDICARE, BC ==
[~2021-02-26] MED LIST changes: +CATHETER FLUSH 10 ML SYR IV PRN; +REGADENOSON 0.4 MG/5 ML SYR (LEXISCAN) IV ONE
[2021-02-26 13:42] VITALS: BP 140/85
--- NOTE | 2021-02-27 01:43 | STRESS TEST ---
DATE OF SERVICE: 02/26/2021 RESTING AND POST REGADENOSON TECHNETIUM-99M TETROFOSMIN SPECT CT IMAGING ORDERING PHYSICIAN: Dr. Nuñez. PRIMARY PHYSICIAN: Dr. Ramsey. CLINICAL DIAGNOSIS: Shortness of breath. Baseline images were carried out after injection of 10.98 mCi of technetium-99m Tetrofosmin. This was followed by 0.4 mg regadenoson and 30.2 mCi of technetium-99m Tetrofosmin for stress imaging. The electrocardiogram showed sinus rhythm at baseline. It did not change significantly with the regadenoson infusion. Review of images at rest and following stress does not indicate any significant perfusion defects consistent with myocardial ischemia or infarction. Gated images show normal regional wall motion. Left ventricular ejection fraction is calculated to be 65%. Left ventricular end diastolic volume is 129 mL. TID is absent (0.97). CONCLUSIONS: 1. No evidence of any significant myocardial ischemia or infarction on this study. 2. Normal regional wall motion. 3. Normal global left ventricular systolic function with a calculated ejection fraction 65%. 4. Mild cardiomegaly. Job ID: [id number] DocumentID: [id number] Dictated Date: 02/26/2021 20:45:12 Park Landscape Architect Date: 02/27/2021 01:42:43 Dictated By: GUMARO NUÑEZ MD, MA, FACP, FACC,
== END ==
LOC: CARD 12:15
PROVIDERS: ATTEND Internal Medicine Cardiovascular Disease
DX: I51.7 Cardiomegaly (principal)
CPT/HCPCS: 78452; 93017; A9502

== ENCOUNTER 2021-06-03 05:34 | Outpatient (RCR) | payer MEDICARE, BC ==
[~2021-06-03] VITALS: Ht 182.9 cm; Wt 114.0 kg
[~2021-06-03 05:34] MED LIST changes: -CATHETER FLUSH 10 ML SYR IV PRN; -REGADENOSON 0.4 MG/5 ML SYR (LEXISCAN) IV ONE
[2021-06-04] MEDS ORDERED: NIAC500T9 PO (07:49)
[2021-06-04] MEDS ORDERED: ASCO500T7 PO (07:49)
[2021-06-04] MEDS ORDERED: TICA90TA PO (07:49)
[2021-06-04] MEDS ORDERED: ATOR40TA70 PO (07:49)
[2021-06-04] MEDS ORDERED: PRIM50TA33 PO (07:49)
[2021-06-04] MEDS ORDERED: TR1C15 TP (07:49)
[2021-06-04] MEDS ORDERED: OMG1KC PO (08:31)
== END 2021-06-04 09:24 | disposition home or self-care (01) ==
LOC: PREOP 05:34 → EDSTATUS 10:00 → PREOP 06-04 09:24
PROVIDERS: ATTEND Podiatrist Foot & Ankle Surgery
DX: Z01.818 Encounter for other preprocedural examination (principal)

== ENCOUNTER 2021-06-10 05:50 | Day surgery (SDC) | payer MEDICARE, BC ==
[2021-06-10] VITALS (10 sets, daily range): BP systolic 115–148; BP diastolic 59–84
[~2021-06-10] VITALS: Ht 182.9 cm; Wt 114.0 kg
[~2021-06-10 05:50] MED LIST changes: +ASCO500T7 PO; +ATOR40TA70 PO; +PRIM50TA33 PO; +TR1C15 TP
[2021-06-10] MEDS ORDERED: ceFAZolin INJECTION 1,000 MG in WATER (STERILE) FOR INJECTION 10 ML IV ONE (06:15)
[2021-06-10] MEDS: LACTATED RINGERS 1,000 ML IV PRN ×2 (06:49→08:19)
[2021-06-10] MEDS ORDERED: ONDANSETRON 4 MG/2 ML (SDV) Z0FRAN IV ONE (07:00)
[2021-06-10] MEDS ORDERED: FAMOTIDINE 20MG/2ML IV (PEPCID) IV ONE (07:00)
[2021-06-10] MEDS ORDERED: LIDOCAINE PF 2% 5 ML (XYLOCAINE) VIAL ONE (07:11)
[2021-06-10] MEDS ORDERED: fentaNYL INJ 100 MCG/2 ML AMP ONE (07:11)
[2021-06-10] MEDS ORDERED: proPOfol 200 MG/20 ML (DIPRIVAN) VIAL IV ONE (07:11)
[2021-06-10] MEDS ORDERED: ONDANSETRON 4 MG/2 ML (SDV) Z0FRAN ONE ×2 (07:11→07:15)
[2021-06-10] MEDS ORDERED: LIDOCAINE 1% INJ 20 ML 20 ML VIAL ONE (07:16)
[2021-06-10] MEDS ORDERED: FAMOTIDINE 20MG/2ML IV (PEPCID) ONE (07:16)
[2021-06-10] MEDS ORDERED: BUPIVACAINE 0.5% 30 ML (SENSORCAINE) VIAL ONE (07:16)
--- NOTE | 2021-06-10 07:45 | Progress Note-Pre Operative ---
Pre-Operative Progress Note H&P Reviewed The H&P was reviewed, patient examined and no changes noted. Date Seen by Provider: Jun 10, 2021 Time Seen by Provider: 07:45 Date H&P Reviewed: Jun 10, 2021 Time H&P Reviewed: 07:45 Pre-Operative Diagnosis: Hypertrophic 2nd Metatarsal, 2nd hammertoe, left JANICE,AUGUSTIN Q DPM Jun 10, 2021 07:45
[2021-06-10] MEDS ORDERED: SEVOFLURANE (ULTANE) 15 ML INHAL SOLN ONE (09:01)
--- NOTE | 2021-06-10 09:24 | Progress Note-Post Operative ---
Post-Operative Progess Note Surgeon (s)/Corporate Bond Trader (s) Surgeon AUGUSTIN CAMACHO DPM Corporate Bond Trader: none Pre-Operative Diagnosis Hypertrophic 2nd Metatarsal, 2nd hammertoe, left Post-Operative Diagnosis Same Procedure & Operative Findings Date of Procedure 06/10/21 Procedure Performed/Findings 2nd Metatarsal Osteotomy, 2nd Hammertoe Reduction, left Anesthesia Type General Estimated Blood Loss Estimated blood loss (mL): Minimal Specimens/Packing Specimens Removed none AUGUSTIN CAMACHO DPM Jun 10, 2021 09:24
[2021-06-10] MEDS ORDERED: CEPH500C PO (09:28)
[2021-06-10] MEDS ORDERED: TRM50T PO (09:28)
[2021-06-10] MEDS ORDERED: LACTATED RINGERS 1,000 ML IV SCH (09:30)
[2021-06-10] MEDS ORDERED: morphine INJ 10 MG/ML 1ML (SYR OR VIAL) IVP ONE (09:30)
[2021-06-10] MEDS ORDERED: HYDROcodone/APAP 5 MG/325 MG (LORTAB) TAB PO PRN (09:30)
[2021-06-10] MEDS ORDERED: ONDANSETRON 4 MG/2 ML (SDV) Z0FRAN IVP PRN (09:30)
--- NOTE | 2021-06-10 10:04 | Anesthesia-General Post-Op ---
General Patient Condition Mental Status/LOC: Same as Preop Cardiovascular: Satisfactory Nausea/Vomiting: Absent Respiratory: Satisfactory Pain: Controlled Complications: Absent Post Op Complications Complications None Follow Up Care/Instructions Patient Instructions None needed. Anesthesia/Patient Condition Patient Condition Patient is doing well, no complaints, stable vital signs, no apparent adverse anesthesia problems. ARELIS SANDOVAL DO Jun 10, 2021 10:04
--- NOTE | 2021-06-10 11:10 | Diagnostic Imaging Report ---
INDICATION: Second toe capsulitis. FINDINGS: AP and lateral views of the left foot reveal operative findings of apparent resection along the distal aspect of second proximal phalanx with K-wire across the interphalangeal joint. There is also anchor present within the distal aspect of second metatarsal. Otherwise, no acute fracture or malalignment is identified. IMPRESSION: Fixation across second proximal interphalangeal joint with anchor screw in the distal second metatarsal. Dictated by: Dictated on workstation # [id number]
--- NOTE | 2021-06-10 11:52 | Physical Therapy Ortho Eval ---
PT Orthopedic Evaluation Type of Surgery Prior Level of Function Current Living Status: Significant Other Locomotion (Upon Admit): Independent Established Durable Medical Eq: None Patient reports he has a 4WW and they have access to crutches. Subjective Entry Into Home: Stairs With Railing Steps Into Home: 2 Steps Accessories: No Railing Motor Control Motor Control: Motor Control WNL ROM ROM: WFL, except focal deficit Strength Strength: WFL Transfer SCALE: Activities may be completed with or without assistive devices. 0-Zhwybhmalu-qzumcua completes the activity by him/herself with no assistance from a helper. 5-Set-up or Clean-up Assistance-helper sets up or cleans up; patient completes activity. [place] assists only prior to or following the activity. 4-Supervision or Touching Assistance-helper provides verbal cues and/or touching/steadying and/or contact guard assistance as patient completes activity. Assistance may be provided throughout the activity or intermittently. 3-Partial/Moderate Assistance-helper does LESS THAN HALF the effort. [place] lif ts, holds or supports trunk or limbs, but provides less than half the effort. 2-Substantial/Maximal Assistance-helper does MORE THAN HALF the effort. [place] lifts or holds trunk or limbs and provides more than half the effort. 5-Yoondbaer-mjygrf does ALL the effort. Patient does none of the effort to complete the activity. Or, the assistance of 2 or more helpers is required for the patient to complete the activity. If activity was not attempted, code reason: 7-Patient Refused. 9-Not Applicable-not attempted and the patient did not perform the activity before the current illness, exacerbation or injury. 10-Not Attempted due to Environmental Limitations-(lack of equipment, weather restraints, etc.). 88-Not Attempted due to Medical Conditions or Safety Concerns. Transfers (B, C, W/C) (QC): 6 Gait Gait Assistive Device: Crutches Right Lower Extremity: Right Weight Bearing Status RLE: Weight Bearing/Tolerated Left Lower Extremity: Left Weight Bearing Status LLE: Partial Weight Bearing Other Weight Bearing Inst.: Keep left foot in front of right with weight to the heel Gait (QC): 50 Distance (QC): 7=766-72 ft Distance: 50 feet Gait Level of Assist: 5 Summary/Comments Patient ascended and descended 2 steps with crutches with CGA and verbal cues. Treatment Rendered Treatment: Gait Train, Step Train, Reviewed Precautions Assessment/Goals Goal Time Frame: 1 Visit Plan Treatment Plan: Discharge PT/Family Agrees to Plan: Yes Time Time In: 1110 Time Out: 1135 Total Billed Treatment Time: 25 Billed Treatment Time Visit, Fili Gomez JOHN A PT Jun 10, 2021 11:52
--- NOTE | 2021-06-10 14:00 | OPERATIVE REPORT ---
DATE OF SERVICE: 06/10/2021 SURGEON: Aaliyah Camacho DPM. PREOPERATIVE DIAGNOSES: 1. Hypertrophic second metatarsal, left foot. 2. Hammertoe, second digit, left foot. POSTOPERATIVE DIAGNOSES: 1. Hypertrophic second metatarsal, left foot. 2. Hammertoe, second digit, left foot. PROCEDURES PERFORMED: 1. Second metatarsal osteotomy, left foot. 2. Reduction of hammertoe, second digit, left foot. WOUND CLASS: Clean. ANESTHESIA: General. HEMOSTASIS: Pneumatic thigh tourniquet at 300 mmHg. INDICATIONS: This 70-year-old male presents complaining of chronic pain to the ball of the left foot. Conservative therapy is met with unsatisfactory results and the patient is agreeable to surgical intervention after risks and complications were discussed at length. No guarantees were extended to the patient and he is willing to proceed. DESCRIPTION OF PROCEDURE: The patient was brought back to the operating table, placed in secure supine position. Appropriate timeout was performed. Pneumatic thigh tourniquet was placed on the left lower extremity over several layers of padding. The left foot was then prepped and draped in normal sterile manner. The left foot was anesthetized utilizing 10 mL of 1:1 mixture of 1% Xylocaine, 0.5% Marcaine injected in a local infusion to the second ray of the left foot. The left foot was then elevated, allowed to exsanguinate after which the tourniquet was inflated to 300 mmHg. Attention was then directed to the dorsal aspect of the left second digit where a 4 cm longitudinal linear incision was created from the surgical neck of the second metatarsal extending to the distal interphalangeal joint of the digit. The incision was deepened in the same plane with great care to identify and retract all vital neurovascular structures. Only necessary blood vessels were cauterized as encountered. The incision was deepened down to the extensor tendon where a Z slide lengthening was performed. The extensor welch was also released overlying the metatarsophalangeal joint. A dorsal capsulorrhaphy was performed to the metatarsophalangeal joint exposing the hypertrophic head of the second metatarsal. Next, a Trever type osteotomy was performed. The osteotomy was cut in alignment with what would be the weightbearing surface for the foot starting at the dorsal aspect of the articular cartilage extending posteriorly, allowing the capital fragment to translocate proximally and was fixated in its corrected position utilizing a 2.0 snap-off screw of 14 mm of length. Excellent bony apposition and fixation was appreciated at this time. The capital fragment was translocated slightly medially to help with realignment of the digit as well. The excess bone to the dorsal aspect of the second metatarsal head were further contoured and smoothed utilizing a rongeur. Excellent range of motion was appreciated at the left second metatarsophalangeal joint. Inspection of the plantar plate found some longitudinal rent, but no excessive amount of tear was identified. Attention was then directed to the proximal interphalangeal joint where the collateral ligaments were released. The head of the proximal phalanx was then fashioned into a peg with a power sagittal saw, followed by a power bur, a hole was created to the base of the middle phalanx with a power bur for the peg-in-hole type arthrodesis. Attention was then directed to the dorsal aspect of the proximal diaphysis proximal phalanx where a helicopter pilot hole was created from dorsal to plantar for a flexor tendon transfer. An approximate 3 mm drill bit was utilized to create a hole for the tendon transfer. Next, the flexor digitorum longus tendon was identified at the interphalangeal joint area and cut and it was then transferred from plantar to dorsal through the hole created at the base of the proximal phalanx. Next, a 0.054 K-wire was driven down the toe, securing the arthrodesis at the proximal interphalangeal joint in rectus position as well as securing the flexor tendon in position for appropriate alignment of the second toe. Great care was taken not to penetrate the articular cartilage of the base of the proximal phalanx. The excess K-wire was cut, and a protective ball was placed over the end of the K-wire. Next, the flexor tendon that was protruding from the dorsal aspect of the toe was split and 2-0 Ethibond was utilized to secure the flexor tendon to the medial and lateral collateral ligaments of the metatarsophalangeal joint area. Excellent range of motion was appreciated at the second metatarsophalangeal joint. The wound was flushed with copious amounts of normal saline and closure was then performed in layers. The extensor tendon was repaired in its lengthened position utilizing a 3-0 Vicryl. Superficial closure was performed with 4-0 Vicryl and skin closure was performed with 4-0 Prolene in a horizontal mattress type stitch. Postoperative injection consisted of 10 mL of 0.5% Marcaine injected in a local infusion to the surgical site. Postoperative dressing consisted of Betadine soaked Adaptic, sterile 4 x 4, sterile Kerlix all secured with a Coban wrap. The patient tolerated the anesthesia and procedure well and was transported from the operating room to the recovery room with vital signs stable and vascular status intact to all digits of the left foot. The patient is to follow up in my office in 10 days' period of time or sooner if necessary. He is to be partial weightbearing on the left lower extremity with use of a walker or crutches. He was given prescription for tramadol as well as Keflex. Job ID: [id number] DocumentID: [id number] Dictated Date: 06/10/2021 09:40:34 Client Service Manager Date: 06/10/2021 13:59:37 Dictated By: AALIYAH CAMACHO DPM
== END 2021-06-10 11:35 | disposition home or self-care (01) ==
LOC: SDC 05:50
PROVIDERS: ATTEND Podiatrist Foot & Ankle Surgery
DX: M20.42 Other hammer toe(s) (acquired), left foot (principal); M89.372 Hypertrophy of bone, left ankle and foot; E66.9 Obesity, unspecified; G47.33 Obstructive sleep apnea (adult) (pediatric); I10 Essential (primary) hypertension; Z95.1 Presence of aortocoronary bypass graft; Z99.89 Dependence on other enabling machines and devices; Z79.899 Other long term (current) drug therapy; Z79.82 Long term (current) use of aspirin
CPT/HCPCS: 28285; 28308; 73620; 87081; 97116; 97161; C1713

== ENCOUNTER → 2021-06-28 | Outpatient (CLI) | payer MEDICARE, BC ==
[~2021-06-28] MED LIST changes: +CEPH500C PO; +TRM50T PO
--- NOTE | 2021-06-28 17:22 | Diagnostic Imaging Report ---
PROCEDURE: US Thyroid. TECHNIQUE: Multiple real-time grayscale images were obtained of the thyroid in various projections. INDICATION: Thyroid nodule. COMPARISON: Study dated 07/05/2020. FINDINGS: Right thyroid lobe measured 4.8 x 2.0 x 1.9 cm. In the upper pole of the right lobe anteriorly is an unchanged predominantly cystic nodule. A second 8 mm also predominantly cystic nodule in the posterior aspect of the right upper lobe is present. The left thyroid lobe measured 3.9 x 1.9 x 1.2 cm. There is an upper pole heterogeneous nodule iso to slightly hypoechoic of 1.3 cm long axis unchanged from prior. IMPRESSION: Stable left lobe TI-RADS 4 lesion, 1.3 cm, unchanged for the past year. Additional follow-up in one year's time recommended. Benign cystic subcentimeter nodules in the right lobe noted incidentally. Dictated on workstation # [id number]
== END ==
LOC: RAD 14:45
PROVIDERS: ATTEND Otolaryngology Otolaryngology/Facial Plastic Surgery
DX: E04.2 Nontoxic multinodular goiter (principal)
CPT/HCPCS: 76536

== ENCOUNTER → 2022-06-12 | Outpatient (CLI) | payer MEDICARE, BC ==
[~2022-06-12] MED LIST changes: -BENA40TA5 PO; +BENA40TA84 PO
--- NOTE | 2022-06-12 16:34 | Diagnostic Imaging Report ---
EXAMINATION: US Thyroid. TECHNIQUE: Multiple real-time grayscale images were obtained of the thyroid in various projections. HISTORY: LT thyroid nodule COMPARISON: 06/28/2021 FINDINGS: The right lobe of the thyroid measures 4.9 x 2.0 x 1.8 cm. There are 2 subcentimeter cystic lesions with calcifications which have image of a colloid cyst. These are unchanged. The left lobe of the thyroid measures 3.9 x 1.9 x 1.6 cm. There is a stable 1.3 cm solid, mildly hypoechoic, wider than tall nodule with smooth margins. The isthmus is normal and measures 0.3 cm. No suspicious adenopathy within the visualized neck. IMPRESSION: 1. Stable 1.3 cm left thyroid nodule, TI-RADS 4. Recommend continued follow-up with TI-RADS criteria. 2. 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 TI-RADS 1: Benign No FNA or follow-up required TI-RADS 2: Not Suspicious No FNA or follow-up required TI-RADS 3: Mildly Suspicious FNA if ? 2.5 cm Follow if ? 1.5 cm (At 1, 3 and 5 years from initial scan) TI-RADS 4: Moderately Suspicious FNA if ? 1.5 cm Follow if ? 1 cm (At 1, 2, 3 and 5 years from initial scan) TI-RADS 5: Highly Suspicious FNA if ? 1 cm Follow if ? 0.5 cm (Annually for 5 years from initial scan) Dictated by: Dictated on workstation # [id number]
== END ==
LOC: RAD 10:56
PROVIDERS: ATTEND Otolaryngology Otolaryngology/Facial Plastic Surgery
DX: E04.2 Nontoxic multinodular goiter (principal)
CPT/HCPCS: 76536

== ENCOUNTER 2022-07-31 05:33 | Outpatient (CLI) | payer MEDICARE, BC ==
[~2022-07-31] VITALS: Ht 182.9 cm; Wt 115.9 kg
== END 2022-07-31 12:51 | disposition home or self-care (01) ==
LOC: PREOP 05:33
PROVIDERS: ATTEND Orthopaedic Surgery
DX: Z01.818 Encounter for other preprocedural examination (principal)

== ENCOUNTER 2022-08-06 09:23 | Day surgery (SDC) | payer MEDICARE, BC ==
--- NOTE | 2022-07-30 10:46 | HISTORY AND PHYSICAL ---
ADMISSION HISTORY AND PHYSICAL DATE OF ADMISSION: 08/06/2022. This will be an outpatient surgery on 08/06/2022 for left rotator cuff repair. HISTORY OF PRESENT ILLNESS: The patient is a 72-year-old right hand dominant gentleman with greater than one-year history of left shoulder pain. He underwent an MRI, which revealed a near full thickness rotator cuff, which revealed a near full thickness supraspinatus tear. He had tried rest, activity modifications, anti-inflammatories, and injections without relief. Due to functional impairment and failure to improve with conservative measures, the patient elected to proceed with surgical intervention. REVIEW OF SYSTEMS: No chest pain, no shortness of breath, and no dysuria. PAST MEDICAL HISTORY: Hypertension, hyperlipidemia, and coronary artery disease. PAST SURGICAL HISTORY: Left foot, right rotator cuff repair, coronary stents, and bilateral carpal tunnel. FAMILY HISTORY: Noncontributory. PRIMARY CARE PROVIDER: Dr. Eddie Ramsey. MEDICATIONS: Benazepril, pantoprazole, Brilinta, primidone, vitamin E, atorvastatin, Ecotrin, and amlodipine. ALLERGIES: OXYCODONE. SOCIAL HISTORY: The patient is a former smoker, drinks alcohol socially. PHYSICAL EXAMINATION: GENERAL: The patient is well-developed, well-nourished, and in no acute distress. HEENT: Normocephalic and atraumatic. Pupils are equal, round and reactive to light. Oropharynx is clear. NECK: Supple. No lymphadenopathy. LUNGS: Clear to auscultation bilaterally. HEART: Regular rate and ABDOMEN: Soft, nontender, and nondistended. EXTREMITIES: The left shoulder demonstrates positive Neer's and positive Hawkin sign. He has weakness with abduction and external rotation. He has symmetric forward elevation, external and internal rotation. He has a negative Spurling's maneuver. IMPRESSION: Left rotator cuff tear. PLAN: Left shoulder arthroscopy with possible biceps tenotomy and open rotator cuff repair. The risks, benefits, options, ramifications and recovery were discussed at length with the patient. He understands and wishes to proceed. Job ID: [id number] DocumentID: [id number] Dictated Date: 07/14/2022 08:25:52 Marine Welder Date: 07/14/2022 09:43:00 Dictated By: MARK HIDALGO MD
[~2022-08-06] VITALS: Ht 182.9 cm; Wt 115.9 kg
[2022-08-06] VITALS (12 sets, daily range): BP systolic 116–136; BP diastolic 78–88
[~2022-08-06 09:23] MED LIST changes: +HYDROcodone/APAP 7.5 MG/325 MG (LORTAB, LORCET PLUS) TABLET PO PRN
[2022-08-06] MEDS ORDERED: morphine PF (DURAMORPH) 10 MG/10 ML AMP ONE (09:38)
[2022-08-06] MEDS ORDERED: BUPIVACAINE 0.25% 30 ML (SENSORCAINE) VIAL ONE (09:38)
[2022-08-06] MEDS: LACTATED RINGERS 1,000 ML IV PRN ×2 (09:39→11:30)
[2022-08-06] MEDS ORDERED: ceFAZolin INJECTION 2,000 MG in NS (IVPB) 50 ML IV ONE (09:45)
[2022-08-06] MEDS ORDERED: NS (IVPB) 50 ML ONE (09:46)
[2022-08-06] MEDS ORDERED: ceFAZolin INJECTION 2,000 MG ONE (09:46)
[2022-08-06] MEDS ORDERED: ONDANSETRON 4 MG/2 ML (SDV) Z0FRAN ONE ×2 (10:04→10:34)
[2022-08-06] MEDS ORDERED: FAMOTIDINE 20MG/2ML IV (PEPCID) ONE (10:04)
[2022-08-06] MEDS ORDERED: fentaNYL INJ 100 MCG/2 ML AMP ONE (10:06)
[2022-08-06] MEDS ORDERED: MIDAZOLAM 2 MG/2 ML (VERSED) VIAL ONE (10:07)
[2022-08-06] MEDS ORDERED: ONDANSETRON 4 MG/2 ML (SDV) Z0FRAN IV ONE (10:15)
[2022-08-06] MEDS ORDERED: FAMOTIDINE 20MG/2ML IV (PEPCID) IV ONE (10:15)
[2022-08-06] MEDS ORDERED: proPOfol 200 MG/20 ML (DIPRIVAN) VIAL IV ONE (10:33)
[2022-08-06] MEDS ORDERED: ROPIVACAINE 5MG/ML 30ML VIAL ONE (10:33)
[2022-08-06] MEDS ORDERED: ROCURONIUM 10 MG/ML 5 ML SYRINGE IV ONE (10:33)
[2022-08-06] MEDS ORDERED: LIDOCAINE PF 2% 5 ML (XYLOCAINE) VIAL ONE (10:33)
--- NOTE | 2022-08-06 11:05 | Progress Note-Pre Operative ---
Pre-Operative Progress Note Date of Available H&P: Jul 30, 2022 Date H&P Reviewed: Aug 06, 2022 Time H&P Reviewed: 07:11 Changes from last HP none Pre-Operative Diagnosis: left rotator cuff tear MARK HIDALGO MD Aug 06, 2022 11:05
--- NOTE | 2022-08-06 11:06 | Progress Note-Post Operative ---
Post-Operative Progess Note Surgeon (s)/Cat Cracker Operator (s) Surgeon MARK HIDALGO MD Cat Cracker Operator: Ramon Peterson Pre-Operative Diagnosis left rotator cuff tear Post-Operative Diagnosis left rotator cuff tear and SLAP tear Procedure & Operative Findings Date of Procedure 08/06/22 Procedure Performed/Findings left shoulder arthroscopic acromioplasty, biceps tenotomy and open rotator cuff repair Anesthesia Type GETA Estimated Blood Loss Estimated blood loss (mL): minimal Specimens/Packing Specimens Removed none Packing: none MARK HIDALGO MD Aug 06, 2022 11:06
[2022-08-06] MEDS ORDERED: GLYCOPYRROLATE 0.2 MG/ML (ROBINUL) 2 ML VIAL ONE (12:03)
[2022-08-06] MEDS ORDERED: NEOSTIGMINE (BLOXIVERZ ) 1 MG/1ML 10 ML VIAL ONE (12:03)
[2022-08-06] MEDS ORDERED: SEVOFLURANE (ULTANE) 15 ML INHAL SOLN ONE (12:06)
[2022-08-06] MEDS ORDERED: ONDANSETRON 4 MG/2 ML (SDV) Z0FRAN IVP PRN (12:15)
[2022-08-06] MEDS ORDERED: morphine INJ 10 MG/ML 1ML (SYR OR VIAL) IVP ONE (12:15)
[2022-08-06] MEDS ORDERED: ONDANSETRON 4 MG/2 ML (SDV) Z0FRAN IVP ONE (14:00)
--- NOTE | 2022-08-06 14:24 | Anesthesia-General Post-Op ---
General Patient Condition Mental Status/LOC: Same as Preop Cardiovascular: Satisfactory Nausea/Vomiting: Absent Respiratory: Satisfactory Pain: Controlled Complications: Absent Post Op Complications Complications None Follow Up Care/Instructions Patient Instructions None needed. Anesthesia/Patient Condition Patient Condition Patient is doing well, no complaints, stable vital signs, no apparent adverse anesthesia problems. No complications reported per nursing. CHICA JACKSON CRNA Aug 06, 2022 14:24
--- NOTE | 2022-08-06 18:13 | OPERATIVE REPORT ---
DATE OF SERVICE: 08/06/2022 PREOPERATIVE DIAGNOSES: 1. Left shoulder chronic rotator cuff tear. 2. Left shoulder SLAP tear. POSTOPERATIVE DIAGNOSES: 1. Left shoulder chronic rotator cuff tear. 2. Left shoulder SLAP tear. PROCEDURES PERFORMED: 1. Left shoulder open rotator cuff repair. 2. Left shoulder arthroscopic biceps tenotomy. 3. Left shoulder arthroscopic acromioplasty. SURGEON: Ronald Grimm MD. GLYCERIN SUPERVISOR: Ramon Peterson, who assisted throughout the procedure and closed the incisions. ANESTHESIA: General endotracheal by Souleymane Barragan CRNA. ESTIMATED BLOOD LOSS: Minimal. DRAINS: None. COMPLICATIONS: None. POSTOPERATIVE PLAN: Passive range of motion for 4 weeks. The patient was transferred to the recovery room awake and stable condition. STATEMENT OF MEDICAL NECESSITY: The patient is a 72-year-old right hand dominant gentleman, who has had progressively worsening left shoulder pain over the last year. He has undergone treatment with injections, anti-inflammatories, and rest. He denies any significant improvement with home physical therapy and injections. MRI revealed a near full-thickness supraspinatus tear. Due to functional impairment and failure to improve with conservative measures, the patient elected to proceed with surgical intervention. Examination under anesthesia revealed forward elevation of 170 degrees, external rotation of 85 degrees, and internal rotation to 75 degrees. Arthroscopic findings demonstrated 75% tearing of the anterior footprint of the supraspinatus. The patient had a split of his biceps tendon at the insertion site into the labrum. The remainder of the labrum was intact. The humeral head and glenoid demonstrated no significant chondral abnormalities. The subacromial space demonstrated moderate bursitis at the anterolateral acromion. DESCRIPTION OF PROCEDURE: After the risks and benefits of the procedure were discussed and questions were answered and informed consent was signed and placed on the chart, the operative site was confirmed in the preoperative holding area initialed by surgeon. The patient was then transferred to the operating room and after adequate level of general endotracheal anesthetic was obtained, a timeout was called, confirming the operative site. The left upper extremity was prepped and draped in the usual sterile fashion. The shoulder joint was injected with 20 mL of fluid. A standard posterior portal was placed under direct visualization, anterior portal was created in the interval between the biceps, subscapularis and glenoid. The biceps anchor was released. The stump was debrided with a shaver. The scope was then redirected into the subacromial space. A lateral portal was created. A bursectomy was performed and the acromion was planed to a flat type 1 acromion. The scope and instruments were removed. The lateral portal was extended. The deltoid was split in line with its fibers leaving attached to the acromion. The rotator cuff tear was completed and a single corkscrew anchor was placed and a modified Cosmo-Poncho repair was performed with excellent repair obtained. No undue tension was noted with the arm at the side. The wound was copiously irrigated. The deltoid was repaired in a loxt-pa-buyu fashion using #2 FiberWire in a ovwkvx-oz-ecndi interrupted fashion. The wound was further irrigated. The 3-0 Vicryl was used to approximate subcutaneous tissue. Skin was closed with 4-0 nylon in a running horizontal mattress fashion. The portal sites were closed with 4-0 nylon in a simple interrupted fashion. The shoulder joint was injected with Duramorph. The portal sites were infiltrated with plain Marcaine as was the incision. A soft dressing and sling were applied and the patient was transported to the recovery room awake and in stable condition. Job ID: [id number] DocumentID: [id number] Dictated Date: 08/06/2022 12:04:52 Elementary [employer] Art Teacher Date: 08/06/2022 18:11:00 Dictated By: RONALD GRIMM MD
== END 2022-08-06 14:20 | disposition home or self-care (01) ==
LOC: SDC 09:23
PROVIDERS: ATTEND Orthopaedic Surgery
DX: M75.112 Incomplete rotator cuff tear or rupture of left shoulder, not specified as traumatic (principal); S43.432A Superior glenoid labrum lesion of left shoulder, initial encounter; E66.9 Obesity, unspecified; Z87.891 Personal history of nicotine dependence; Z68.34 Body mass index [BMI] 34.0-34.9, adult; X58.XXXA Exposure to other specified factors, initial encounter
CPT/HCPCS: 23412; 29822; 29826; 87081; C1713